=== PATIENT | female | born 1945 | race Caucasian/White ===

== ENCOUNTER 2017-11-06 00:27 | Emergency (ER) | payer MEDICARE, MEDICAID ==
[~2017-11-06] VITALS: Ht 162.6 cm; Wt 59.0 kg
--- NOTE | 2017-11-06 00:37 | NUR ---
Dr. Gunderson at bedside for MSE.
[2017-11-06] MEDS ORDERED: MUPIROCIN 2% OINT 22 GM TUBE TP ONE (00:45)
--- NOTE | 2017-11-06 00:51 | NUR ---
CALLED [employer]. SPOKE WIT BREAD PACKER 439. BREAD PACKER WILL SEND UNIT RAYMUNDO
[2017-11-06] MEDS ORDERED: MUPIROCIN 2% OINT 22 GM TUBE ONE (00:57)
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
--- NOTE | 2017-11-06 01:40 | NUR ---
[employer] at [facility] to interview patient
[2017-11-06] MEDS ORDERED: CEPHALEXIN MONOHYDRATE 500 MG CAPSULE PO ONE (02:00)
[2017-11-06] MEDS ORDERED: CEPHALEXIN MONOHYDRATE 500 MG CAPSULE ONE (02:03)
--- NOTE | 2017-11-06 02:17 | NUR ---
Patient discharged to home in stable conditon. Written and verbal after care instructions given. Patient verbalizes understanding of instructions. Pt ambulated out of ER with steady gait, VSS, no acute signs of distress, all belongings taken.
[2017-11-06 02:19] VITALS: BP 158/72
== END 2017-11-06 02:20 | disposition home or self-care (01) ==
LOC: ER 00:30
DX: S01.431A Puncture wound without foreign body of right cheek and temporomandibular area, initial encounter (principal); Z59.0 Homelessness; W34.09XA Accidental discharge from other specified firearms, initial encounter; Y93.89 Activity, other specified; Y92.89 Other specified places as the place of occurrence of the external cause; Y99.8 Other external cause status
CPT/HCPCS: 99283; A4217; A4663

== ENCOUNTER 2017-11-30 17:30 | Emergency (ER) | payer MEDICARE, MEDICAID ==
[~2017-11-30] VITALS: Ht 162.6 cm; Wt 61.2 kg
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
--- NOTE | 2017-11-30 18:29 | NUR ---
Patient given written and verbal discharge instructions. Patient verbalizes understanding of instructions. Patient is ambulatory with steady gait. Refuses to get info on shelters because pt says "its harder to live in shelters than to live on streets".
== END 2017-11-30 18:33 | disposition home or self-care (01) ==
LOC: ER 17:30
DX: S40.021A Contusion of right upper arm, initial encounter (principal); S70.11XA Contusion of right thigh, initial encounter; Z59.0 Homelessness; W34.00XA Accidental discharge from unspecified firearms or gun, initial encounter; Y93.89 Activity, other specified; Y92.89 Other specified places as the place of occurrence of the external cause; Y99.8 Other external cause status
CPT/HCPCS: A4663

== ENCOUNTER 2018-06-23 23:17 | Emergency (ER) | payer MEDICARE, MEDICAID ==
[~2018-06-23] VITALS: Ht 162.6 cm; Wt 63.5 kg
--- NOTE | 2018-06-23 23:36 | NUR ---
Patient is AAOx4. Speaking in complete sentences. Speech is clear. Patient comes in with c/o LLE swelling/pain x3 days. Bed in lowest position. Siderails up x2. CAll light is within reach. Fall precautions per malik.
[2018-06-23] MEDS ORDERED: MUPIROCIN 2% OINT 22 GM TUBE ONE (23:54)
[2018-06-23] MEDS ORDERED: SULFAMETH/TRIMETH 800/160 MG TABLET ONE (23:54)
[2018-06-24] MEDS ORDERED: SULFAMETH/TRIMETH 800/160 MG TABLET PO ONE
[2018-06-24] MEDS ORDERED: MUPIROCIN 2% OINT 22 GM TUBE TP ONE
--- NOTE | 2018-06-24 00:09 | NUR ---
Patient does not wish to proceed with medical care recommended by Dr. Hernandez. Patient given information related to possible complications, up to and including , which could occur as a result of leaving the hospital at this time. Patient verbalizes understanding of risks involved due to leaving against medical advice. Patient has signed AMA form. All belongings with patient.
== END 2018-06-24 00:10 | disposition left against medical advice (07) ==
LOC: ER 23:19
DX: L03.116 Cellulitis of left lower limb (principal); Z59.0 Homelessness
CPT/HCPCS: A4663

== ENCOUNTER 2018-06-24 21:17 | Emergency (ER) | payer MEDICARE, MEDICAID ==
[~2018-06-24] VITALS: Ht 160 cm; Wt 59.4 kg
--- NOTE | 2018-06-24 21:20 | NUR ---
Dr. Frank TSAI MD at bedside to evaluate pt.
[2018-06-24 21:42] LABS: BASOPHILS # (AUTO) 0.1 K/uL (0.0-8.0); BASOPHILS % (AUTO) 1.2 % (0.0-2.0); EOSINOPHILS # (AUTO) 0.3 K/uL (0.0-0.7); EOSINOPHILS % (AUTO) 2.8 % (0.0-7.0); HEMATOCRIT 36.6 % (31.2-41.9); HEMOGLOBIN 12.2 g/dL (10.9-14.3); LYMPHOCYTES # (AUTO) 2.2 K/uL (20.0-40.0); LYMPHOCYTES % (AUTO) 21.1 % (20.5-51.5); MEAN CORPUSCULAR HEMOGLOBIN 28.5 uug (24.7-32.8); MEAN CORPUSCULAR HGB CONC 33 g/dL (32.3-35.6); MEAN CORPUSCULAR VOLUME 85.5 fL (75.5-95.3); MONOCYTES # (AUTO) 0.8 K/uL (2.0-10.0); MONOCYTES % (AUTO) 7.7 % (0.0-11.0); NEUTROPHILS # (AUTO) 6.9 K/uL (1.8-8.9); NEUTROPHILS % (AUTO) 67.2 % (38.5-71.5); PLATELET COUNT (AUTO) 296 K/uL (179-408); RED BLOOD CELL COUNT(AUTO) 4.28 MIL/uL (3.63-4.92); WHITE BLOOD COUNT (AUTO) 10.2 K/uL (3.8-11.8)
[2018-06-24 21:50] LABS: CARBON DIOXIDE 31 mmol/L (21-32); CHLORIDE 104 mmol/L (98-107); GLUCOSE 111 mg/dL (74-106); POTASSIUM 4.2 mmol/L (3.5-5.1); UREA NITROGEN, BLOOD 30 mg/dL (7-18)
[2018-06-24] MEDS ORDERED: SULFAMETH/TRIMETH 800/160 MG TABLET PO ONE (22:00)
[2018-06-24] MEDS ORDERED: SULFAMETH/TRIMETH 800/160 MG TABLET ONE (22:02)
--- NOTE | 2018-06-24 22:10 | NUR ---
Patient discharged to home in stable conditon. Written and verbal after care instructions given. Patient verbalizes understanding of instructions. Patient offered food/drinks and refused. Patient states she has had "10,000 calories today" Patient also refused assistance with jail. Homeless waiver form signed. Patient ambulated out of ER with stable gait. All belongings taken.
[2018-06-24 22:15] VITALS: BP 150/94
== END 2018-06-24 22:15 | disposition home or self-care (01) ==
LOC: ER 21:19
DX: L03.116 Cellulitis of left lower limb (principal); I89.0 Lymphedema, not elsewhere classified; Z59.0 Homelessness
CPT/HCPCS: 36415; 85025; A4663

== ENCOUNTER 2018-06-27 22:00 | Emergency (ER) | payer MEDICARE, MEDICAID ==
[~2018-06-27] VITALS: Ht 157.5 cm; Wt 61.2 kg
--- NOTE | 2018-06-27 22:23 | NUR ---
Patient here for wound check.
--- NOTE | 2018-06-27 22:27 | NUR ---
Patient given written and verbal discharge instructions. Patient verbalizes understanding of instructions. Patient is ambulatory with steady gait. Refuses offer of long term placement. Patient given list of available shelters in surrounding area.
[2018-06-27 22:28] VITALS: BP 145/87
== END 2018-06-27 22:29 | disposition home or self-care (01) ==
LOC: ER 22:02
DX: L03.116 Cellulitis of left lower limb (principal); Z59.0 Homelessness
CPT/HCPCS: A4663

== ENCOUNTER 2018-07-02 16:40 | Emergency (ER) | payer MEDICARE, MEDICAID ==
[~2018-07-02] VITALS: Ht 157.5 cm; Wt 61.2 kg
--- NOTE | 2018-07-02 16:59 | NUR ---
PT A/OX4, PRESENTS TO THE ER C/O GENERALIZED ITCHINESS. PT STATES SHE WAS SEEN IN THIS ER SEVERAL DAYS AGO AND PRESCRIBED BACTRIM FOR CELLULITIS OF THE LLE. PT REPORTS ONSET OF HIVES AND ITCHINESS STARTING LAST NIGHT (07/01/18). UPON INSPECTION, HIVES CHEST, BUE, AND BACK. PT DENIES PAIN, C/P, SOB, N/V/D, DIZZINESS, HEADACHE.
--- NOTE | 2018-07-02 17:07 | NUR ---
QUIN ELLER AT BEDSIDE FOR MSE.
[2018-07-02] MEDS ORDERED: CLINDAMYCIN HCL 300 MG CAPSULE ONE (17:14)
[2018-07-02] MEDS ORDERED: CLINDAMYCIN HCL 150 MG CAPSULE PO ONE (17:15)
--- NOTE | 2018-07-02 17:23 | NUR ---
PT OFFERED FOOD AND WATER, PT REFUSED. PT PROVIDED W/ INFORMATION RE WINTER SHELTERS AND HEALTHCARE CLINICS.
--- NOTE | 2018-07-02 17:23 | NUR ---
Patient given written and verbal discharge instructions. Patient verbalizes understanding of instructions. Patient is ambulatory with steady gait. Refuses offer of penitentiary placement. Patient given list of available shelters in surrounding area. Pt states that she wanted to return to her prior living arrangement and not be provided w/ transportation to a homeless penitentiary. Pt refuses transportation and prefers to arrange for herself.
[2018-07-02] MEDS ORDERED: diphenhydrAMINE 50 MG CAPSULE ONE (17:24)
[2018-07-02 17:25] VITALS: BP 164/70
[2018-07-02] MEDS ORDERED: diphenhydrAMINE 50 MG CAPSULE PO ONE (17:30)
== END 2018-07-02 17:33 | disposition home or self-care (01) ==
LOC: ER 16:42
DX: L03.116 Cellulitis of left lower limb (principal); L50.0 Allergic urticaria; Z88.2 Allergy status to sulfonamides; Z88.8 Allergy status to other drugs, medicaments and biological substances; Z59.0 Homelessness
CPT/HCPCS: 99283; Q0163; A4663

== ENCOUNTER 2018-07-07 14:41 | Inpatient (IN) | payer MEDICARE, MEDICAID ==
[~2018-07-07] VITALS: Ht 162.6 cm; Wt 65.8 kg
[2018-07-07] VITALS (11 sets, daily range): BP systolic 88–146; BP diastolic 39–66
[2018-07-07] MEDS ORDERED: SODIUM BICARBONATE 8.4% 50 MEQ/50 ML DISP.SYRIN IV ONE (14:42)
[2018-07-07] MEDS ORDERED: ETOMIDATE 20 MG/10 ML VIAL IV ONE ×2 (14:42→16:00)
[2018-07-07] MEDS ORDERED: EPINEPHRINE 1:10,000 1 MG/10 ML DISP.SYRIN IV ONE (14:42)
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
[2018-07-07] MEDS ORDERED: VANCOMYCIN IV 1,000 MG in IV DEXTROSE 5% 250 ML IV ONE (15:00)
[2018-07-07] MEDS ORDERED: VANCOMYCIN IV 200 ML ONE (15:07)
[2018-07-07] MEDS ORDERED: methylPREDNISolone SOD SUCC 125 MG/2 ML VIAL ONE (15:07)
--- NOTE | 2018-07-07 15:17 | NUR ---
HYDRO STATION SUPERVISOR AT BEDSIDE.
--- NOTE | 2018-07-07 15:18 | NUR ---
US TECH AT BEDSIDE.
[2018-07-07 15:21] LABS: BASOPHILS # (AUTO) 0.1 K/uL (0.0-8.0); BASOPHILS % (AUTO) 0.7 % (0.0-2.0); EOSINOPHILS # (AUTO) 0.5 K/uL (0.0-0.7); EOSINOPHILS % (AUTO) 5.4 % (0.0-7.0); HEMOGLOBIN 13.1 g/dL (10.9-14.3); LYMPHOCYTES % (AUTO) 9.7 % (20.5-51.5); MEAN CORPUSCULAR HGB CONC 33 g/dL (32.3-35.6); MEAN CORPUSCULAR VOLUME 85.3 fL (75.5-95.3); MONOCYTES # (AUTO) 0.4 K/uL (2.0-10.0); MONOCYTES % (AUTO) 4.2 % (0.0-11.0); NEUTROPHILS # (AUTO) 8.1 K/uL (1.8-8.9); PLATELET COUNT (AUTO) 373 K/uL (179-408); RED BLOOD CELL COUNT(AUTO) 4.69 MIL/uL (3.63-4.92); WHITE BLOOD COUNT (AUTO) 10.1 K/uL (3.8-11.8)
[2018-07-07 15:31] LABS: CARBON DIOXIDE 28 mmol/L (21-32); CHLORIDE 100 mmol/L (98-107); CREATININE 1.1 mg/dL (0.6-1.3); GLUCOSE 148 mg/dL (74-106); POTASSIUM 3.8 mmol/L (3.5-5.1); UREA NITROGEN, BLOOD 22 mg/dL (7-18)
[2018-07-07 15:37] LABS: ALANINE AMINOTRANSFERASE 22 U/L (14-59); ALKALINE PHOSPHATASE 140 U/L (50-136); ASPARTATE AMINOTRANSFERASE 20 U/L (15-37); BILIRUBIN,DIRECT 0.1 mg/dL (0.0-0.2); BILIRUBIN,TOTAL 0.3 mg/dL (0.2-1.0); TOTAL PROTEIN, SERUM 7.6 g/dL (6.4-8.2)
[2018-07-07] MEDS: methylPREDNISolone SOD SUCC 125 MG/2 ML VIAL IV ONE ×2 (15:39→15:40)
--- NOTE | 2018-07-07 15:39 | NUR ---
SLOW IVP SOLUMEDROL ADMIN VIA 20G RAC. PT DID NOT HAVE ANY ADVERSE REACTIONS. PT A/OX4, RESPONSIVE. NO DISTRESS NOTED.
--- NOTE | 2018-07-07 15:40 | NUR ---
POST CHARTING IV INFUSION OF VANCOMYCIN VIA 20G IN RAC, RETURNED TO PT'S ROOM AND FOUND PT UNRESPONSIVE W/ NO RESPIRATIONS. PALPATED FOR CAROTID PULSE, NO PULSE PALPATED. CODE BLUE ACTIVATED, CPR INITIATED.
[2018-07-07] MEDS ORDERED: diphenhydrAMINE 50 MG CAPSULE PO ONE (15:45)
--- NOTE | 2018-07-07 15:45 | NUR ---
PLEASE REFER TO CODE SHEET.
[2018-07-07] MEDS ORDERED: EPINEPHRINE 1 MG/1 ML AMP ONE (15:46)
[2018-07-07] MEDS ORDERED: PROPOFOL 100 ML ONE (15:54)
--- NOTE | 2018-07-07 15:57 | NUR ---
CODE BLUE CLEAR BY QUIN ELLER.
[2018-07-07] MEDS ORDERED: FAMOTIDINE. 20 MG/2 ML VIAL IV ONE (16:00)
--- NOTE | 2018-07-07 16:00 | NUR ---
Pt placed on vent post arrest.. Orally intubated, ETT 7.5, approx 23 at lip, in place and secure with [place] Fast.. Continuous mechanical ventilation with vent: Pagan, settings: A/C 16, Vt 550, PEEP +5, FiO2 100%, tolerating well at this time, will continue to monitor.. Sputum sample obtained.. vent alarms on / audible and functioning normally at this time..
[2018-07-07] MEDS ORDERED: NOREPINEPHRINE BITARTRATE 4 MG/4 ML VIAL IV ONE (16:46)
[2018-07-07 16:50] LABS: ETHANOL < 3 MG/DL (0-0)
[2018-07-07 17:00] LABS: ABG BASE EXCESS -7.1 mmol/L; ABG HCO3 18.5 mmol/L; ABG PCO2 37.7 mmHg (35.0-45.0); ABG PH 7.308 (7.350-7.450); ABG PO2 454.5 mmHg (75.0-100.0); ABG SITE LEFT BRACHIAL; ABG TOTAL HEMOGLOBIN 15.2 G/dL (12.0-16.0); COHb 1.2 % (0.5-1.5); MetHb 0.3 % (0.0-1.5); O2Hb 98.4 % (94.0-97.0); VENT MODE VENT - A/C; VT, ABG 550 mL
[2018-07-07] MEDS: PROPOFOL 100 ML IV PRN ×2 (17:00→17:51)
--- NOTE | 2018-07-07 17:07 | NUR ---
FiO2 lowered to 50% post ABG, and LOLIS Machado aware..
--- NOTE | 2018-07-07 17:28 | NUR ---
ER SPOKE W/ PLAN COORDINATOR AT [facility], DR. DELGADO, REPORTS PT DOES NOT MEET CRITERIA FOR EMERGENT SEWER PIPE SORTER PROCEDURE.
[2018-07-07] MEDS ORDERED: IV NORMAL SALINE 500 ML BAG IV ONE (17:30)
--- NOTE | 2018-07-07 17:30 | NUR ---
PT TAKEN TO RADIOLOGY FOR CT SCAN, TELE MONITORING CONTINUED. PT ACCOMPANIED BY RT LAURA, FRANCHESCA VARGAS, AND MYSELF. VSS.
--- NOTE | 2018-07-07 17:40 | NUR ---
PT TRANSPORTED TO CT SCAN AND BACK TO ER WITHOUT INCIDENT NOTED. VENT WORKING WELL AND PLUGGED TO RED OUTLET, O2 CONNECTED.
--- NOTE | 2018-07-07 17:40 | NUR ---
PT BACK IN ER FROM RADIOLOGY.
[2018-07-07 17:48] LABS: *BILIRUBIN,URIN NEGATIVE (NEGATIVE); *BLOOD, URINE 2+ (NEGATIVE); *CLARITY,URINE CLOUDY (CLEAR); *COLOR,URINE YELLOW (YELLOW); *KETONES,URINE NEGATIVE (NEGATIVE); *UROBILINOGEN,URINE 0.2 E.U./dl (NORMAL); LEUKOCYTE ESTERASE ,URINE NEGATIVE (NEGATIVE); NITRITE, URINE NEGATIVE (NEGATIVE); UGLUCOSE TRACE (NEGATIVE)
[2018-07-07 17:54] LABS: BACTERIA,URINE NONE SEEN /HPF (NONE SEEN); SQUAMOUS EPITHELIAL CELL,UR FEW /HPF (NONE SEEN); WBC,URINE 0-3 /HPF (0-3)
[2018-07-07] MEDS ORDERED: HEPARIN/D5W DRIP 500 ML IV ONE (18:15)
[2018-07-07] MEDS ORDERED: HEPARIN SODIUM,PORCINE 5,000 UNITS/ML VIAL IV ONE (18:15)
[2018-07-07] MEDS ORDERED: LORAZEPAM 2 MG/1 ML VIAL ONE (18:24)
[2018-07-07] MEDS ORDERED: LORAZEPAM 2 MG/1 ML VIAL IV ONE (18:30)
[2018-07-07] MEDS ORDERED: HEPARIN/D5W DRIP 500 ML ONE (18:38)
[2018-07-07] MEDS ORDERED: HEPARIN SODIUM,PORCINE 5,000 UNITS/ML VIAL ONE (18:38)
--- NOTE | 2018-07-07 19:17 | NUR ---
SHIFT REPORT GIVEN TO LOLIS STOVER. VSS. 118/81, HR 103, RR 16 ON VENT - FIO2 50%, PEEP 5, TV 550 - SPO2 100%
--- NOTE | 2018-07-07 19:43 | NUR ---
ADMITTING REPORT GIVEN TO LOLIS HIGGINBOTHAM.
--- NOTE | 2018-07-07 19:43 | NUR ---
Pt. admitted to CCU2, under care of Dr. BRYANT. Belongs List completed
[2018-07-07] MEDS ORDERED: EPINEPHRINE 1 MG/1 ML AMP SQ ONE (19:45)
--- NOTE | 2018-07-07 19:58 | NUR ---
Clinical pharmacy note-Vancomycin dosing per pharmacy Subjective: To start Vancomycin dosing on this patient for LLE cellulitis(failed outpatient) Objective: BUN 22 Scr 1.1 WBC 10.1 Temp 98.2 Ht 162, 56 cm Wt 79.832kg Assessment/Plan: Vancomycin 1 gram x1 was given in ER today at 1540. Will continue Vancomycin 1 gram IV every 21hrs(second dose tomorrow at 12) and draw trough by 4th dose(not ordered yet) for expected trough around 15. Will monitor daily.
--- NOTE | 2018-07-07 20:07 | NUR ---
Received pt CCU bed 2, under the care of MD HAYLEY. Dx: S/P CARDIOPULMONARY ARREST/ RESPIRATORY FAILURE. Pt orally intubated with vent settings: AC 16, TV 550, PEEP 5, Fio2 50%. On continuous Diprivan and Heparin drips. See IV spreadsheet for rates. Pt on bilateral restraints for safety. Assessment completed. See initial admission data.
--- NOTE | 2018-07-07 20:13 | NUR ---
Pt transported to CCU bed 2 on vent with settings: A/C 16, Vt 550, PEEP +5, FiO2 50% Orally intubated, ETT 7.5, approx 23 at lip, in place and secure with [place] Fast. tolerating well at this time, will continue to monitor.. vent alarms on / audible and functioning normally at this time vent plugged into red outlet. will cont to monitor pt.
[2018-07-07] MEDS ORDERED: ONDANSETRON 4 MG/2 ML VIAL IV PRN (20:30)
[2018-07-07] MEDS ORDERED: Z GUARD REMEDY PASTE 57 GM TUBE TOP PRN (20:30)
[2018-07-07] MEDS ORDERED: PROPOFOL 100 ML IV PRN (20:45)
[2018-07-07] MEDS ORDERED: NOREPINEPHRINE BITARTRATE 8 MG in IV DEXTROSE 5% 500 ML IV PRN ×4 (20:45)
--- NOTE | 2018-07-07 20:45 | NUR ---
Notified MD HAYLEY of pt admission and need for admitting orders. Inform MD of pt vital signs and current condition. Stated MD will provide orders. Will continue to monitor pt.
--- NOTE | 2018-07-07 20:50 | NUR ---
Heparin drip dose discussed with pharmacist. Dose adjusted to current pt's weight. WT: 69.5 KG.
[2018-07-07] MEDS: HEPARIN/D5W DRIP 500 ML IV PRN (21:27)
[2018-07-07] MEDS: Z GUARD REMEDY PASTE 57 GM TUBE TOP SCH (21:27)
--- NOTE | 2018-07-07 21:35 | NUR ---
JAMESON notified of critical TROPONIN level. Pt is already on Heparin drip as per MD. No new orders.
--- NOTE | 2018-07-07 22:00 | NUR ---
Attempted to insert another IV but unsuccessful. Correctional Medicine Physician called for PICC line insertion.
--- NOTE | 2018-07-07 22:30 | NUR ---
DR HARDY called, spoke to LOLIS GANT. Orders received.
--- NOTE | 2018-07-07 23:10 | NUR ---
Pt seen and examined by DR HARDY. Orders given. PICC line consent form signed by MD. Repeat EKG seen by MD. Will continue to monitor pt.
[2018-07-08] VITALS (30 sets, daily range): BP systolic 95–138; BP diastolic 25–61
[2018-07-08] MEDS: METOPROLOL TARTRATE 25 MG TABLET GT SCH ×3 (00:08→21:02)
[2018-07-08] MEDS: PANTOPRAZOLE SODIUM 40 MG VIAL IV SCH ×2 (00:08→08:34)
[2018-07-08] MEDS: PROPOFOL 100 ML IV PRN ×5 (02:04→23:18)
[2018-07-08 05:02] LABS: BASOPHILS % (AUTO) 0.1 % (0.0-2.0); EOSINOPHILS # (AUTO) 0.1 K/uL (0.0-0.7); EOSINOPHILS % (AUTO) 0.2 % (0.0-7.0); HEMOGLOBIN 12.1 g/dL (10.9-14.3); LYMPHOCYTES # (AUTO) 1.2 K/uL (20.0-40.0); LYMPHOCYTES % (AUTO) 4.6 % (20.5-51.5); MEAN CORPUSCULAR HEMOGLOBIN 28.3 uug (24.7-32.8); MEAN CORPUSCULAR HGB CONC 34 g/dL (32.3-35.6); MEAN CORPUSCULAR VOLUME 84.5 fL (75.5-95.3); MONOCYTES # (AUTO) 0.6 K/uL (2.0-10.0); MONOCYTES % (AUTO) 2.4 % (0.0-11.0); NEUTROPHILS % (AUTO) 92.7 % (38.5-71.5); PLATELET COUNT (AUTO) 270 K/uL (179-408); RED BLOOD CELL COUNT(AUTO) 4.27 MIL/uL (3.63-4.92); WHITE BLOOD COUNT (AUTO) 25.9 K/uL (3.8-11.8)
[2018-07-08 05:24] LABS: CARBON DIOXIDE 23 mmol/L (21-32); CHLORIDE 105 mmol/L (98-107); CREATININE 1.8 mg/dL (0.6-1.3); GLUCOSE 184 mg/dL (74-106); MAGNESIUM 1.6 mg/dL (1.8-2.4); PHOSPHOROUS 4.9 mg/dL (2.5-4.9); POTASSIUM 4.3 mmol/L (3.5-5.1); TRIGLYCERIDES 112 MG/DL (30-150); UREA NITROGEN, BLOOD 34 mg/dL (7-18)
[2018-07-08 05:25] LABS: CHOLESTEROL 129 mg/dL (<200); HDL CHOLESTEROL 44 mg/dL (40-60)
[2018-07-08 05:47] LABS: BAND % (MANUAL) 5 % (0-10); LYMPHOCYTES % (MANUAL) 6 % (20-40); MONOCYTES % (MANUAL) 2 % (2-10); NEUTROPHILS % (MANUAL) 86 % (42-75)
--- NOTE | 2018-07-08 07:25 | NUR ---
Pt stable on current vent settings. VSS. Remains on Diprivan and Heparin drips. Endorsed plan of care to day shift nurse.
--- NOTE | 2018-07-08 07:26 | NUR ---
All notes and documentation by Romina Heath RN (on orientation) were under my supervision.
--- NOTE | 2018-07-08 07:33 | NUR ---
PT RECEIVED ON FULL VENTILATORY SUPPORT TOLERATING CURRENT SETTINGS FINE WITH NO DISTRESS. PT APPEARS COMFORTABLE. BREATH SOUNDS WITHOUT WHEEZING. PT SUCTIONED AND HAD SCANT AMOUNT OF THIN WHITE SECRETIONS. HEAD OF THE BED ELEVATED GREATER THAN 35 DEGREE ANGLE. VENT ALARMS SET AND AUDIBLE. ORAL CARE DONE. ETT CHANGED SIDES FROM PT LEFT SIDE OF LIP TO THE RIGHT. ETT SECURED AND AIRWAY PATENT. WILL CONTINUE TO MONITOR.
[2018-07-08 07:56] LABS: ABG BASE EXCESS -2.5 mmol/L; ABG HCO3 19.7 mmol/L; ABG PCO2 26.7 mmHg (35.0-45.0); ABG PH 7.485 (7.350-7.450); ABG SITE RIGHT RADIAL; ABG TOTAL HEMOGLOBIN 12.2 G/dL (12.0-16.0); COHb 0.5 % (0.5-1.5); MetHb 0.3 % (0.0-1.5); VENT MODE VENT - A/C; VT, ABG 550 mL
[2018-07-08] MEDS ORDERED: MAGNESIUM SULFATE/D5W 100 ML IV SCH (08:30)
--- NOTE | 2018-07-08 08:32 | NUR ---
Dr. Cueva here to see pt. Full report given. New orders received.
[2018-07-08] MEDS: LORATADINE 10 MG TABLET PO SCH (08:34)
[2018-07-08] MEDS: Z GUARD REMEDY PASTE 57 GM TUBE TOP SCH ×2 (08:35→21:02)
[2018-07-08] MEDS: diphenhydrAMINE 50 MG/1 ML VIAL IV PRN (08:45)
[2018-07-08] MEDS: POTASSIUM CHLORIDE 10 MEQ in IV D5 1/2 NS 1000 ML 1,000 ML IV PRN (09:04)
[2018-07-08] MEDS: ACETAMINOPHEN 325 MG TABLET PO PRN (09:08)
--- NOTE | 2018-07-08 09:08 | NUR ---
Pt noted to have low grade temp of 100.0 orally. Tylenol PRN given and cooling measures applied.
--- NOTE | 2018-07-08 09:37 | NUR ---
Dr. Hong (Pulmonary) here to see pt. Full report given. New orders received.
[2018-07-08] MEDS ORDERED: VANCOMYCIN IV 1 G in PREMIXED 0 EACH IV ONE (10:15)
--- NOTE | 2018-07-08 11:05 | NUR ---
VENT SETTING CHANGES MADE PER DR GOLDSMITH. RESPIRATORY RATE CHANGED TO 12 BPM.
[2018-07-08] MEDS ORDERED: VANCOMYCIN IV 1 G in PREMIXED 0 EACH IV SCH (12:00)
--- NOTE | 2018-07-08 12:16 | NUR ---
Clinical pharmacy note-Vancomycin dosing per pharmacy Subjective: To continue Vancomycin dosing on this patient for LLE cellulitis(failed outpatient) Objective: BUN 34 Scr 1.8 (yesterdayt 1.1) WBC 25.9 Temp 99 Ht 162, 56 cm Wt 79.832kg random with am labs today 0.8 Assessment/Plan: As renal function has decreased drastically, stopped scehduled regimen and will dose per level for now. 1gm vanco x 1 given today at 1015. Next random level due tomorrow with am labs. Will check and re-dose as needed. Will follow
[2018-07-08] MEDS: GLUCERNA 1.2 1000ML LIQUID GT PRN (14:49)
--- NOTE | 2018-07-08 15:18 | NUR ---
Dr. Britton here to see pt. Full report given. No new orders received.
--- NOTE | 2018-07-08 19:30 | NUR ---
rounds made patient in bed orally intubated on ac12/550/30% peep 5,tolerating vent setting, rr 13 saturation 99 to 100%, + cough and + gag suction via mouth and via ett .sedated on propofol .patient withdraws to pain but doesn't follow commands .TF in progress on Glucerna 1.2 goal of 50 ml now at 20 ml . hob up aspiration precaution observed ,f/c to bsd .continue to monitor levels of comfort and v/s .
--- NOTE | 2018-07-08 19:50 | NUR ---
Pt received sedated, orally intubated on continuous mechanical ventilation via 7.5 ETT secured at 23cm lip line. Pt is on Pagan vent with ordered settings of A/C-12, VT-550, PEEP+5, FIO2-30% Pt tolerating vent settings well. No signs or symptoms of respiratory distress noted. SpO2-99% Sxn'd scant amounts of thick white secretions. ETT secured with AnchorFast device. Good skin integrity noted under area of application. No skin tears or breakdown noted. ETT moved periodically to alternating sides of mouth. HME changed. Oral care done. PPE used. Vent alarm parameters checked, on and audible. Vent plugged into red emergency outlet. Bag/valve/mask at bedside. Will continue to monitor.
--- NOTE | 2018-07-08 20:30 | NUR ---
sedation vacation done when off propofol patient moved upper and lower extremities reach for the ETT doesn't not follow commands .
--- NOTE | 2018-07-08 21:04 | NUR ---
turned and reposition patient,skin care done ,z guard applied to sacral and bilateral groin area elevate upper and lower extremities with pillows.back off loaded with pillow .hob up . oral care done suction via ett and via mouth .
--- NOTE | 2018-07-08 21:30 | NUR ---
turned and reposition patient ,skin care done , z guard applied to sacral area and bilateral groin . oral care done and suction via mouth and via ett .
--- NOTE | 2018-07-08 22:30 | NUR ---
placed patient on air loss mattress , changed soiled linens and gown .
[2018-07-09] VITALS (23 sets, daily range): BP systolic 104–141; BP diastolic 42–86
--- NOTE | 2018-07-09 02:00 | NUR ---
patient had bm moderate in am changed soiled linens and gown skin care done .
[2018-07-09] MEDS: PROPOFOL 100 ML IV PRN ×3 (03:59→20:35)
--- NOTE | 2018-07-09 04:00 | NUR ---
am care done patient had a large bm soft to loose bm yellowish to greenish foul smelling ,stool for c diff .changed soiled linens and gown ,z guard applied sacral area bilateral groin ,f/c done and oral care done .patient withdraws to pain .doesn't follow commands . .on propofol for sedation and restraint on follow restrains protocol .turned and reposition offloaded heels and back area with pillows ,upper arm elevated with pillows .
[2018-07-09] MEDS: HEPARIN/D5W DRIP 500 ML IV PRN (04:10)
[2018-07-09] MEDS: POTASSIUM CHLORIDE 10 MEQ in IV D5 1/2 NS 1000 ML 1,000 ML IV PRN ×2 (04:14→23:02)
[2018-07-09 04:58] LABS: BASOPHILS % (AUTO) 0.2 % (0.0-2.0); EOSINOPHILS # (AUTO) 1.1 K/uL (0.0-0.7); EOSINOPHILS % (AUTO) 6.1 % (0.0-7.0); HEMATOCRIT 33.7 % (31.2-41.9); HEMOGLOBIN 11.2 g/dL (10.9-14.3); LYMPHOCYTES # (AUTO) 1.3 K/uL (20.0-40.0); LYMPHOCYTES % (AUTO) 7.2 % (20.5-51.5); MEAN CORPUSCULAR HEMOGLOBIN 28.1 uug (24.7-32.8); MEAN CORPUSCULAR HGB CONC 33 g/dL (32.3-35.6); MONOCYTES # (AUTO) 0.4 K/uL (2.0-10.0); MONOCYTES % (AUTO) 2.4 % (0.0-11.0); NEUTROPHILS # (AUTO) 14.6 K/uL (1.8-8.9); NEUTROPHILS % (AUTO) 84.1 % (38.5-71.5); PLATELET COUNT (AUTO) 224 K/uL (179-408); RED BLOOD CELL COUNT(AUTO) 3.96 MIL/uL (3.63-4.92); WHITE BLOOD COUNT (AUTO) 17.3 K/uL (3.8-11.8)
[2018-07-09 05:26] LABS: ALANINE AMINOTRANSFERASE 26 U/L (14-59); ALKALINE PHOSPHATASE 87 U/L (50-136); ASPARTATE AMINOTRANSFERASE 38 U/L (15-37); BILIRUBIN,TOTAL 0.2 mg/dL (0.2-1.0); CARBON DIOXIDE 24 mmol/L (21-32); CHLORIDE 100 mmol/L (98-107); CREATININE 2.2 mg/dL (0.6-1.3); GLUCOSE 141 mg/dL (74-106); MAGNESIUM 2.3 mg/dL (1.8-2.4); PHOSPHOROUS 5.3 mg/dL (2.5-4.9); POTASSIUM 4.1 mmol/L (3.5-5.1); TOTAL PROTEIN, SERUM 5.9 g/dL (6.4-8.2); UREA NITROGEN, BLOOD 39 mg/dL (7-18)
[2018-07-09] MEDS: PANTOPRAZOLE SODIUM 40 MG VIAL IV SCH (06:43)
--- NOTE | 2018-07-09 07:00 | NUR ---
appt 38.9 heparin protocol followed co send with another RN . APPT due at 1300.no s/s of bleedings.
--- NOTE | 2018-07-09 07:15 | NUR ---
PT REC'D ORALLY INTUBATED WITH 7.5 ETT SECURED WITH TUBE WALLACE AT APPROX 23 LIP-LINE. VENT SETTINGS AC12 550 PEEP+5 30%FiO2 TOLERATING WELL WITH WEANING ORDERED THIS AM OF WHEN SEDATION OFF CPAP/PS X 1HR WITH ABG'S TO BE DRAWN. VENT ALARMS AUDIBLE CHECKED AND RESET BVM AT BEDSIDE.
[2018-07-09] MEDS: LORATADINE 10 MG TABLET PO SCH (07:50)
[2018-07-09] MEDS: Z GUARD REMEDY PASTE 57 GM TUBE TOP SCH ×2 (07:51→20:35)
[2018-07-09] MEDS: METOPROLOL TARTRATE 25 MG TABLET GT SCH ×2 (07:51→20:34)
--- NOTE | 2018-07-09 08:00 | NUR ---
At 0730, IV propofol turned off per weaning protocol. At 0800, pt placed on CPAP weaning trial with settings as follows: PSV-6, PEEP-5, and 30% FiO2. ABG to be rechecked in one hour as ordered.
--- NOTE | 2018-07-09 08:15 | NUR ---
VENT SETTING CHANGES MADE, PT APPEARS COMFORTABLE ON CPAP/PS, ABG'S TO BE DRAWN IN 1HR.
[2018-07-09] MEDS ORDERED: VANCOMYCIN IV 1 G in PREMIXED 0 EACH IV ONE (09:00)
[2018-07-09 09:38] LABS: ABG BASE EXCESS -3.9 mmol/L; ABG HCO3 21.1 mmol/L; ABG PCO2 38.3 mmHg (35.0-45.0); ABG PH 7.359 (7.350-7.450); ABG PO2 102.3 mmHg (75.0-100.0); ABG SITE LEFT RADIAL; COHb 0.5 % (0.5-1.5); CPAP,BG 5 cmH20; MetHb 0.3 % (0.0-1.5); O2Hb 96.5 % (94.0-97.0); VENT MODE VENT - CPAP; VT, ABG 727 mL
--- NOTE | 2018-07-09 09:41 | NUR ---
Dr. Hong here to see pt. Full report given. New orders received.
--- NOTE | 2018-07-09 09:53 | NUR ---
Per Dr. Hong, continue CPAP for now. If pt more awake and alert during CPAP, okay for extubation.
[2018-07-09] MEDS: GLUCERNA 1.2 1000ML LIQUID GT PRN (09:59)
--- NOTE | 2018-07-09 11:15 | NUR ---
Pt not awake, alert for CPAP weaning trial at this time. Pt noted to be poorly responsive. Will retry weaning trials tomorrow in the am. Pt placed back on prior ventilation settings as follows: AC-12, TV-550ml, 30% FiO2, and PEEP-5.
--- NOTE | 2018-07-09 11:16 | NUR ---
PT WEANING ON CPAP/PS, PT DOING WELL WEANING PLACING BACK ON PREVIOUS SETTINGS AT THIS TIME. RESUMING WEANING IN AM CPAP/PS.
--- NOTE | 2018-07-09 12:30 | NUR ---
translation director here to see pt. New orders received.
--- NOTE | 2018-07-09 12:31 | NUR ---
WOUND CARE CONSULT: PT PRESENTS WITH GENERALIZED BLOTCHY RED SKIN RESOLVING REDNESS AND EDEMA TO LEFT LOWER LEG WITH SOME OPEN BLISTERS AND PEELING SKIN, ALSO SACRAL STAGE 2 ULCER, PRESENT ON ADMISSION. DEFER TO MD FOR BLOTCHY RED SKIN CONDITION. RECOMMENDATIONS MADE FOR WOUND CARE AND SKIN PROTECTION. DISCUSSED WITH NURSING STAFF. WILL SEE PRN. PT ON FIRST STEP [facility] LOW AIRLOSS MATTRESS. CURRENT NICOLE SCORE IS 14. PT CURRENTLY INTUBATED. MD IN AGREEMENT WITH PLAN OF CARE. Addendum: 07/09/18 at 1234 by GERI MARTINEZ RN Amended: Links added.
[2018-07-09] MEDS ORDERED: LEVOFLOXACIN 500 MG/D5W 500 MG in PREMIXED 1 EACH IV ONE (14:00)
--- NOTE | 2018-07-09 14:46 | NUR ---
Dr. Britton here to see pt. Full report given. No new orders received.
--- NOTE | 2018-07-09 16:41 | NUR ---
Clinical pharmacy note-Vancomycin dosing per pharmacy Subjective: To continue Vancomycin dosing on this patient for LLE cellulitis(failed outpatient) Objective: BUN 39 Scr 2.2 (yesterdayt 1.8) WBC 17.3 Temp 99.6 Ht 162, 56 cm Wt 79.832kg random with am labs today 16.2 Assessment/Plan: As renal function continues to decline, will dose per level for now. 1gm vanco x 1 given today at 0900 per random level. Next random level due tomorrow with am labs. Will check and re-dose as needed. Will follow
--- NOTE | 2018-07-09 19:30 | NUR ---
patient orally intubated on ac fio3 30% peep 5 .tolerating vent setting rr 12 saturation 100% .oral care done and suction via mouth and via nose .on propofol for sedation .patient withdraws to light pain , at times moved extremities.,doesn't follow commands .restraint used and follow protocol .tf in progress on Glucerna at 50 ml /hr at goal ,hob up .aspiration precaution observed .f/c to bsd continue to monitor i and os . left lower leg with dressing c/d/i.elevated with pillow .continue to monitor v/s ,and levels of comfort .
--- NOTE | 2018-07-09 20:09 | NUR ---
lab /manager of care at bedside to draw aptt patient on heparin drip protocol . .
--- NOTE | 2018-07-09 20:10 | NUR ---
PT RECEIVED ORALLY INTUBATED WITH A 7.5 ETT APPROXIMATELY 23CM AT THE LIP. PT IS BEING MECHANICALLY VENTILATED VIA MARINELLI VENT WITH VENT SETTINGS OF AC 12, VT 550, PEEP +5, FIO2 30%. PT APPEARS TO BE TOLERATING AT THIS TIME. NO S/S OF RESPIRATORY DISTRESS NOTED. HME CHANGED. ORAL CARE DONE. SUCTIONED SMALL AMOUNT OF YELLOW/WHITE SECRETIONS. VENT ALARMS ARE SET, ON AND FUNCTIONING PROPERLY. VENT IS PLUGGED INTO RED EMERGENCY OUTLET. AMBU BAG IS AT BEDSIDE. WILL CONTINUE TO MONITOR THROUGHOUT SHIFT.
--- NOTE | 2018-07-09 20:30 | NUR ---
appt 53.2 no changed with heparin drip appt in am with labs .
--- NOTE | 2018-07-09 21:00 | NUR ---
sedation vacation done ,when off propofol patient moved upper and lower extremities ,moved head from side to side but doesn't follow commands placed back on sedation continue to monitor levels of sedation and levels of comfort .
--- NOTE | 2018-07-09 22:30 | NUR ---
patient had bm large in amt soft to loose greenish to yellowish in color . changed soiled linens and gown skin care done ,z guard with hydrogel applied to sacral area and bilateral groin .turned and reposition . hob up and tolerating tube feeding aspiration precaution observed.
[2018-07-10] VITALS (22 sets, daily range): BP systolic 109–150; BP diastolic 20–75
--- NOTE | 2018-07-10 00:30 | NUR ---
turned and reposition patient skin care done ,turned and reposition patient . hob up .
[2018-07-10] MEDS: PROPOFOL 100 ML IV PRN ×2 (03:56→14:30)
--- NOTE | 2018-07-10 04:00 | NUR ---
boom tender came and did am labs .cbc ,bmp,mg and phos .
[2018-07-10] MEDS: HEPARIN/D5W DRIP 500 ML IV PRN (04:05)
--- NOTE | 2018-07-10 04:30 | NUR ---
patient had a bm large in amount soft loose large in amt ,changed soiled linens a and gown .heels offloaded and scds used .
[2018-07-10 04:33] LABS: BASOPHILS # (AUTO) 0.1 K/uL (0.0-8.0); BASOPHILS % (AUTO) 0.6 % (0.0-2.0); EOSINOPHILS # (AUTO) 1.2 K/uL (0.0-0.7); EOSINOPHILS % (AUTO) 8.6 % (0.0-7.0); HEMATOCRIT 29.2 % (31.2-41.9); HEMOGLOBIN 9.8 g/dL (10.9-14.3); LYMPHOCYTES # (AUTO) 1.4 K/uL (20.0-40.0); LYMPHOCYTES % (AUTO) 9.8 % (20.5-51.5); MEAN CORPUSCULAR HEMOGLOBIN 28.3 uug (24.7-32.8); MEAN CORPUSCULAR HGB CONC 34 g/dL (32.3-35.6); MONOCYTES # (AUTO) 0.4 K/uL (2.0-10.0); MONOCYTES % (AUTO) 2.8 % (0.0-11.0); NEUTROPHILS % (AUTO) 78.2 % (38.5-71.5); PLATELET COUNT (AUTO) 203 K/uL (179-408); RED BLOOD CELL COUNT(AUTO) 3.48 MIL/uL (3.63-4.92); WHITE BLOOD COUNT (AUTO) 14.1 K/uL (3.8-11.8)
[2018-07-10 04:44] LABS: CARBON DIOXIDE 24 mmol/L (21-32); CHLORIDE 99 mmol/L (98-107); CREATININE 1.7 mg/dL (0.6-1.3); GLUCOSE 149 mg/dL (74-106); MAGNESIUM 1.9 mg/dL (1.8-2.4); PHOSPHOROUS 4.4 mg/dL (2.5-4.9); POTASSIUM 4.1 mmol/L (3.5-5.1); UREA NITROGEN, BLOOD 33 mg/dL (7-18); VANCOMYCIN,RANDOM 19.9 ug/mL (18.0-26.0)
--- NOTE | 2018-07-10 05:58 | NUR ---
aeronautical engineering technologist at bedside for pcxr.
[2018-07-10] MEDS: PANTOPRAZOLE SODIUM 40 MG VIAL IV SCH (06:37)
--- NOTE | 2018-07-10 07:30 | NUR ---
report received from Philippe DANIELLE, 73 yr old female admited on 07/07/18 for s/p cardiopulmonary arrest while in ED, was being seen for left leg cellulitis. currently is orally intubated to ac 12. fio2 30%, tv 550 and peep 5cm. on propofol drip at 20mcg/kg/min. and on heaprin drip at 1084 units per hour. has 3 lumen PICC line via ciara. IV d5 1/2 NS plus 10meq kcl at 50ml/hr. ngt via right nare intact and clamped at present. chamberlain catheter intact with adequate urine ouptut. left left cellulitis noted. leags are elvated on pillows/ wrist restraints are intact. . ekg is sinus rhthym. is afebrle. bp stable. Addendum: 07/10/18 at 1102 by ALEXX BLEVINS RN Amended: Links added.
--- NOTE | 2018-07-10 09:03 | NUR ---
seen by dr hays, orders received. heparin dc/d. will start on lovenox. Addendum: 07/10/18 at 0908 by ALEXX BLEVINS RN Amended: Links added.
[2018-07-10] MEDS: LORATADINE 10 MG TABLET PO SCH (09:08)
[2018-07-10 09:09] LABS: ABG BASE EXCESS -0.6 mmol/L; ABG HCO3 23.7 mmol/L; ABG PCO2 37.3 mmHg (35.0-45.0); ABG PO2 95.5 mmHg (75.0-100.0); ABG SITE LEFT RADIAL; ABG TOTAL HEMOGLOBIN 10.3 G/dL (12.0-16.0); COHb 0.9 % (0.5-1.5); MetHb 0.1 % (0.0-1.5); O2Hb 96.4 % (94.0-97.0); VENT MODE VENT - CPAP
[2018-07-10] MEDS: METOPROLOL TARTRATE 25 MG TABLET GT SCH ×2 (09:09→20:08)
[2018-07-10] MEDS: diphenhydrAMINE 50 MG/1 ML VIAL IV PRN ×3 (09:09→21:34)
[2018-07-10] MEDS: GLUCERNA 1.2 1000ML LIQUID GT PRN (09:12)
[2018-07-10] MEDS: Z GUARD REMEDY PASTE 57 GM TUBE TOP SCH ×2 (09:34→20:09)
[2018-07-10] MEDS: ENOXAPARIN SODIUM 30 MG/0.3 ML DISP.SYRIN SUBCUT SCH (09:48)
--- NOTE | 2018-07-10 10:35 | NUR ---
seen by dr trujillo.orders received, will keep patient on cpap as tolerated, ac prn for fatigue. needed yo be on sedation plus benadryl rx for skin urticaria, Addendum: 07/10/18 at 1035 by ALEXX BLEVINS RN Amended: Links added.
[2018-07-10] MEDS: LEVOFLOXACIN 250MG /D5W 250 MG in PREMIXED 1 EACH IV SCH (14:20)
--- NOTE | 2018-07-10 14:34 | NUR ---
seen by dr blevins.orders received. IV fluid dcd. Addendum: 07/10/18 at 1435 by ALEXX BLEVINS RN Amended: Links added.
--- NOTE | 2018-07-10 15:23 | NUR ---
medicated for skin itchiness. Addendum: 07/10/18 at 1807 by ALEXX BLEVINS RN Amended: Links added.
[2018-07-10] MEDS: IV NORMAL SALINE 250 ML IV PRN (15:25)
--- NOTE | 2018-07-10 15:29 | NUR ---
Clinical pharmacy note-Vancomycin dosing per pharmacy Subjective: To continue Vancomycin dosing on this patient for LLE cellulitis(failed outpatient) Objective: BUN 33 Scr 1.7 (yesterday 2.2) WBC 14.1 Temp 99.2 Ht 162, 56 cm Wt 79.832kg random with am labs today 19.9 Assessment/Plan: As renal function still unstable (now resolving), will dose per levels. per today's random, will dose 1gm vanco at 2100 tonight. Will check renal function in am and decide when to order next random. Will follow
--- NOTE | 2018-07-10 16:00 | NUR ---
wound care done on left leg cellulitis. repositioned pm care done Addendum: 07/10/18 at 1802 by ALEXX BLEVINS RN Amended: Mckay added. Addendum: 07/10/18 at 1804 by ALEXX BLEVINS RN Amended: Mckay added. Addendum: 07/10/18 at 1807 by ALEXX BLEVINS RN Amended: Links added.
--- NOTE | 2018-07-10 17:30 | NUR ---
placed back on ac mode to rest for tonight. propofol drip at 15 mcg/kg/min Addendum: 07/10/18 at 1804 by ALEXX BLEVINS RN Amended: Links added. Addendum: 07/10/18 at 1807 by ALEXX BLEVINS RN Amended: Links added.
--- NOTE | 2018-07-10 18:03 | NUR ---
PT REMAINS ON MARINELLI VENT, SETTINGS AC 12, Vt 550, +5, 30% FIO2. ALARSM ARE ON AND AUDIBLE, BVM AT BEDSIDE. 7.5 ETT IS PATENT AND SECURED WITH ANCHOR FAST, APPROX 23CM LIP. TOLERATED WEANING TRIAL WELL ON CPAP/PS 6 FOR MOST OF DAY. PLACED BACK ON PREVIOUS SETTINGS. WILL RESUME WEANING TRIAL TOMORROW PER MD ORDERS.
--- NOTE | 2018-07-10 19:30 | NUR ---
patient in bed orally intubated on ac 12/550 /fio2 30% peep 5 ,7.5 ,23 on the lip ,tolerating vent setting saturation 98 % rr 16 . breathing even and unlabored .oral care done ,suction via mouth and via ett oral . on propofol for sedation ,patient moved upper and lower extremities,moved head from side to side open eyes half way but doesn't follow commands ,restraints in placed and follow restraints protocol . tube feeding in progress on Glucerna 1.2 at 50 ml/hr checked residual 10 ml .abdomen round but soft .hob up . aspiration precaution observed .f/c to bsd with yellowish urine as endorsed adequate urinary output .continue to monitor v/s and levels of comfort .
--- NOTE | 2018-07-10 19:30 | NUR ---
Pt received sedated, in semi bajwa's, and orally intubated on continuous mechanical ventilation via 7.5 ETT secured at 23cm lip line. ETT secured with AnchorFast device. Good skin integrity noted under area of application. No skin tears or breakdown noted. Pt is on Pagan vent with ordered settings of A/C-12, VT-550, PEEP+5, FIO2-30% Pt tolerating vent settings well. No signs or symptoms of respiratory distress noted. SpO2-98% Sxn'd small amounts of thin white/yellow secretions. ETT moved periodically to alternating sides of mouth. HME changed. Oral care done. PPE used. Vent alarm parameters checked, on and audible. Vent plugged into red emergency outlet. Bag/valve/mask at bedside. Will continue to monitor.
--- NOTE | 2018-07-10 19:45 | NUR ---
respiratory therapist at bedside,gave patient breathing treatment,oral care and collected sputum for c/s via endotracheal aspirate.
[2018-07-10] MEDS ORDERED: VANCOMYCIN IV 1 G in PREMIXED 0 EACH IV ONE (21:00)
--- NOTE | 2018-07-10 21:34 | NUR ---
noted when off sedation patient reaches for the ETT tube ,doesn't follow commands ,scratches abdomen area, with generalized redness rashes ,given Benadryl prn .
[2018-07-10] MEDS: HYDROCODONE/APAP 5-325MG TABLET PO PRN (21:39)
--- NOTE | 2018-07-10 21:39 | NUR ---
using Virgen allen pain scale patient restless ,facial grimace noted moving upper and lower extremities given [place] prn see emar .
--- NOTE | 2018-07-10 22:00 | NUR ---
turned and reposition patient ,offloaded back and elevated upper and lower extremities with pillow heels of bed ,. scds used to bilateral legs .
[2018-07-11] VITALS (22 sets, daily range): BP systolic 109–154; BP diastolic 2–77
--- NOTE | 2018-07-11 | NUR ---
patient sleeping in bed no s/s of pain or distress breathing even and unlabored continue to monitor v/s and levels of pain .turned and reposition and offloaded back and elevated upper and lower extremities with pillow hob up aspiration precaution observed .
[2018-07-11] MEDS: PROPOFOL 100 ML IV PRN ×3 (01:31→09:38)
--- NOTE | 2018-07-11 04:32 | NUR ---
am care done ,bath patient ,had x1 bm large in amt ,greenish yellowish soft .changed soiled linens and gown skin care done ,zguard applied to sacral and bilateral groin area ,placed Mepilex to sacral area,oral care done suction via ett and via mouth .perineal care and f/c done .turned and reposition .
--- NOTE | 2018-07-11 05:00 | NUR ---
PCXR done by tech at bedside .
[2018-07-11] MEDS: diphenhydrAMINE 50 MG/1 ML VIAL IV PRN ×2 (05:09→18:40)
--- NOTE | 2018-07-11 05:30 | NUR ---
boatswains mate at bedside for am labs .
[2018-07-11 05:51] LABS: BASOPHILS % (AUTO) 0.1 % (0.0-2.0); EOSINOPHILS # (AUTO) 1.4 K/uL (0.0-0.7); EOSINOPHILS % (AUTO) 10.9 % (0.0-7.0); HEMATOCRIT 27.4 % (31.2-41.9); HEMOGLOBIN 9.3 g/dL (10.9-14.3); LYMPHOCYTES # (AUTO) 1.3 K/uL (20.0-40.0); LYMPHOCYTES % (AUTO) 10.3 % (20.5-51.5); MEAN CORPUSCULAR HEMOGLOBIN 28.5 uug (24.7-32.8); MEAN CORPUSCULAR HGB CONC 34 g/dL (32.3-35.6); MEAN CORPUSCULAR VOLUME 84.3 fL (75.5-95.3); MONOCYTES # (AUTO) 0.6 K/uL (2.0-10.0); MONOCYTES % (AUTO) 4.7 % (0.0-11.0); NEUTROPHILS # (AUTO) 9.2 K/uL (1.8-8.9); RED BLOOD CELL COUNT(AUTO) 3.25 MIL/uL (3.63-4.92); WHITE BLOOD COUNT (AUTO) 12.5 K/uL (3.8-11.8)
[2018-07-11 05:58] LABS: CARBON DIOXIDE 25 mmol/L (21-32); CHLORIDE 104 mmol/L (98-107); CREATININE 1.6 mg/dL (0.6-1.3); GLUCOSE 126 mg/dL (74-106); MAGNESIUM 1.9 mg/dL (1.8-2.4); PHOSPHOROUS 4.4 mg/dL (2.5-4.9); POTASSIUM 4.5 mmol/L (3.5-5.1); TRIGLYCERIDES 180 MG/DL (30-150); UREA NITROGEN, BLOOD 31 mg/dL (7-18)
[2018-07-11 06:03] LABS: *CREATININE,URINE 54.9 mg/dL (30-125); *URINE TOTAL PROTEIN RANDOM 20.2 mg/dL (<150/24HR)
[2018-07-11 06:22] LABS: BAND % (MANUAL) 1 % (0-10); EOSINOPHILS % (MANUAL) 11 % (0-8); LYMPHOCYTES % (MANUAL) 9 % (20-40); MONOCYTES % (MANUAL) 5 % (2-10); NEUTROPHILS % (MANUAL) 74 % (42-75)
[2018-07-11 06:24] LABS: PLATELET COUNT (AUTO) 186 K/uL (179-408)
--- NOTE | 2018-07-11 07:30 | NUR ---
RECIEVED PT LYING IN BED, WITH HOB UP AT 35DEGREES. PT IS SEDATED BUT AROUSABLE TO CALL. OPENS EYES AND RESPONSIVE TO LIGHT PAIN. COLOR IS GOOD AND SKIN IS DRY AND WARM TO TOUCH. HR IS SR. PT HAS A PICC LINE ON THE BRANDIE PATENT AND INTACT. PROPOFOL DRIP RUNNING AT 30MCG/KG/MIN INFUSING WELL TO KEEP PT CALM AND SEDATED. PT HAS BILATERAL PITTING EDEMA ON THE UPPER HANDS +2. PT HAS AN ETT IN PLACEM CONNECTED TO MECHANICAL VENT WITH A SETTING OF AC-12, VT-550, PEEP-5, FIO2-30%. LUNGS ARE CLEAR WITH DECREASED BS AT THE BASES., SUCTION SMALL AMOUNT OF WHITISH PHLEGM. O2SAT 97-100%.
--- NOTE | 2018-07-11 07:40 | NUR ---
RECEIVED PT ON CONTINUOUS VENT AC 12 VT 550 PEEP 5 FIO2 30%. BS EQUAL BILAT. ETT 7.5 SECURED APPROXIMATELY AT 23 CM LIP LINE. REPOSITIONED ETT TO LEFT SIDE OF MOUTH. SUCTION PRN. PLACED PT ON CPAP PSV 6 PER WEANING ORDER. PT TOLERATING CURRENT SETTINGS AT THIS TIME. WILL CONTINUE TO MONITOR.
--- NOTE | 2018-07-11 08:00 | NUR ---
VENT SETTING PLACED ON CPAP, PSV-6 ORDERED. PT IS TOLERATING WELL.
[2018-07-11] MEDS: ENOXAPARIN SODIUM 30 MG/0.3 ML DISP.SYRIN SUBCUT SCH (08:57)
[2018-07-11] MEDS: PANTOPRAZOLE ORAL SUSPENSION 40 MG SUSPDR.PKT GT SCH (08:58)
[2018-07-11] MEDS: METOPROLOL TARTRATE 25 MG TABLET GT SCH ×2 (08:59→20:35)
[2018-07-11] MEDS: Z GUARD REMEDY PASTE 57 GM TUBE TOP SCH ×2 (08:59→21:35)
[2018-07-11 09:03] LABS: ABG BASE EXCESS 2.7 mmol/L; ABG PCO2 46.3 mmHg (35.0-45.0); ABG PH 7.399 (7.350-7.450); ABG SITE LEFT BRACHIAL; ABG TOTAL HEMOGLOBIN 10.1 G/dL (12.0-16.0); MetHb 0.3 % (0.0-1.5); O2Hb 94.4 % (94.0-97.0); VENT MODE VENT - CPAP
--- NOTE | 2018-07-11 10:00 | NUR ---
TUBE FEEDING OF GLUCERNA 1.2 VIA NGT ON THE LEFT NARES STARTED AT 50ML/HR D5RNEXMS. NO RESIDUALS NOTED. PT HAS DIARRHEA YELLOEWISH GREENISH STOOL. FOLEYCATHETER INTACT, DRAINING CLEAR YELLOW URINE GOOD AMOUNT. DRESSING ON THE LEFT LEG INTACT.
[2018-07-11] MEDS: GLUCERNA 1.2 1000ML LIQUID GT PRN (10:22)
[2018-07-11] MEDS: IV NORMAL SALINE 250 ML IV PRN (11:10)
[2018-07-11] MEDS ORDERED: FUROSEMIDE 40 MG/4 ML VIAL IV SCH (12:00)
--- NOTE | 2018-07-11 12:15 | NUR ---
FLEXISEAL RECTAL TUBE INSERTED ORDERED. PT IS CONSTANTLY HAVING LOOSE BM. SEEN AND EXAMINED BY DR REILLY WITH NEW ORDERS NOTED.
--- NOTE | 2018-07-11 12:18 | NUR ---
Clinical pharmacy note-Vancomycin dosing per pharmacy Subjective: To continue Vancomycin dosing on this 73 yo female patient for LLE cellulitis(failed outpatient) Objective: BUN 31 Scr 1.6 WBC 12.5 Temp 99.3 Ht 162, 56 cm Wt 79.832kg random with am labs today 19.9 Random on 07/11 at 1700: pending Assessment/Plan: As renal function still unstable, will continue to dose per levels. Since patient received vanco 1gm vanco at 2100 last night. Will check vanco random level today at 1700 & re-dose if appropriate. Will follow
--- NOTE | 2018-07-11 12:20 | NUR ---
PT MEDICATED WITH LASIX 40MG SLOW IVP ORDERED.
--- NOTE | 2018-07-11 12:45 | NUR ---
SEEN AND EXAMINED BY DR XIAO WITH NEW ORDER.
[2018-07-11] MEDS ORDERED: DC PROPOFOL ONCE EXTUBATED XX PRN (13:00)
--- NOTE | 2018-07-11 13:00 | NUR ---
SEEN AND EXAMINED BY DR CHÁVEZ WITH NEW ORDER TO EXTUBATE THE PT. STARTED WEANING OFF PROPOFOL DRIP.
[2018-07-11] MEDS: LEVOFLOXACIN 250MG /D5W 250 MG in PREMIXED 1 EACH IV SCH (14:03)
--- NOTE | 2018-07-11 14:20 | NUR ---
PROPOFOL DRIP IS OFF. PT IS EXTUBATED BY RT SUCCESSFULLY AND PLACED THE PT ON O2 AT 3LNC. PT IS AWAKE AND RESPONSIVE. SUCTIONED ORALLY AND PT IS COOPERATIVE. O2SAT IS BETWEEN 97-99%.
--- NOTE | 2018-07-11 14:20 | NUR ---
Pt extubated and placed on nasal cannula 3Lpm , spo2 98% . pt awake and alert. no distress noted.
[2018-07-11] MEDS: HYDROCODONE/APAP 5-325MG TABLET PO PRN (18:38)
--- NOTE | 2018-07-11 18:45 | NUR ---
PT IS GRIMACING AND ITCHING A LOT AND BP IS GOING UP. MEDICATED WITH BENADRYL 25MG SLOW IVP AND NORCO GIVEN VIA NGT. SLEEPING ON AND OFF. NO APPARENT RESPIRATORY DISTRESS NOTED.
--- NOTE | 2018-07-11 19:45 | NUR ---
patient in bed s/p extubated at 1430, patient now on nasal cannula at 3 liter /min .tolerating o2 saturation 98% rr 20,no s/s of respiratory distress .SR on the heart monitor .NGT on TF on Glucerna 1.2 at 50 ml/hr tolerating checked residual 10 ml .f/c to bsd, rectal tube patent .continue to monitor v/s and levels of comfort.
--- NOTE | 2018-07-11 21:42 | NUR ---
patient more awake and verbal ,as per patient she said call the police they have me hostage ,reoriented patient and informed she is in the hospital,when asked where is lives she replied Im homeless . asked if she has family she said there all .restraints still implemented patient trying to get oob at times anxious advised to stay in bed ,call light placed in her hand and advised to call for help .continue to monitor v/s and levels of comfort .
--- NOTE | 2018-07-11 22:30 | NUR ---
patient noted to be more verbal and able to verbalized intent as per patient she wants to be reposition ,done turned and reposition patient hob up . elevated upper and lower extremities with pillow . reeducated patient and informed shes in hospital; constant reminding needed and reorientation . .
[2018-07-12] VITALS (24 sets, daily range): BP systolic 98–161; BP diastolic 50–90
--- NOTE | 2018-07-12 | NUR ---
flexiseal /rectal tube in place with brownish liquid stool about 150 ml .i and os done ,f./c intact with adequate urinary output urine yellowish in color .oral/mouth care done .
[2018-07-12] MEDS: ACETAMINOPHEN 325 MG TABLET PO PRN ×2 (01:00→14:54)
[2018-07-12] MEDS: diphenhydrAMINE 50 MG/1 ML VIAL IV PRN ×4 (01:00→20:34)
--- NOTE | 2018-07-12 01:00 | NUR ---
given Benadryl at 0100 for patient scratching abdomen area ,scan medication but did not registered ,did a administered schedule .
[2018-07-12] MEDS: IV NORMAL SALINE 250 ML IV PRN (04:28)
--- NOTE | 2018-07-12 04:30 | NUR ---
am care done ,bath patient ,skin care done follow wound care treatment recommendation .oral care done .f/c done .rectal tube in placed and patent ,changed soiled linens and gown turned and reposition .hob up .
[2018-07-12 05:05] LABS: BASOPHILS % (AUTO) 0.3 % (0.0-2.0); EOSINOPHILS # (AUTO) 1.6 K/uL (0.0-0.7); EOSINOPHILS % (AUTO) 10.4 % (0.0-7.0); HEMATOCRIT 31.5 % (31.2-41.9); HEMOGLOBIN 10.5 g/dL (10.9-14.3); LYMPHOCYTES # (AUTO) 1.4 K/uL (20.0-40.0); LYMPHOCYTES % (AUTO) 9.2 % (20.5-51.5); MEAN CORPUSCULAR HEMOGLOBIN 28.3 uug (24.7-32.8); MEAN CORPUSCULAR HGB CONC 34 g/dL (32.3-35.6); MEAN CORPUSCULAR VOLUME 84.4 fL (75.5-95.3); MONOCYTES % (AUTO) 6.8 % (0.0-11.0); NEUTROPHILS # (AUTO) 11.1 K/uL (1.8-8.9); NEUTROPHILS % (AUTO) 73.3 % (38.5-71.5); PLATELET COUNT (AUTO) 255 K/uL (179-408); RED BLOOD CELL COUNT(AUTO) 3.73 MIL/uL (3.63-4.92); WHITE BLOOD COUNT (AUTO) 15.2 K/uL (3.8-11.8)
[2018-07-12 05:07] LABS: ALANINE AMINOTRANSFERASE 72 U/L (14-59); ALKALINE PHOSPHATASE 132 U/L (50-136); ASPARTATE AMINOTRANSFERASE 66 U/L (15-37); BILIRUBIN,TOTAL 0.3 mg/dL (0.2-1.0); CARBON DIOXIDE 30 mmol/L (21-32); CHLORIDE 104 mmol/L (98-107); CREATININE 1.6 mg/dL (0.6-1.3); GLUCOSE 137 mg/dL (74-106); MAGNESIUM 1.8 mg/dL (1.8-2.4); POTASSIUM 4.5 mmol/L (3.5-5.1); TOTAL PROTEIN, SERUM 6.4 g/dL (6.4-8.2); UREA NITROGEN, BLOOD 33 mg/dL (7-18)
--- NOTE | 2018-07-12 05:25 | NUR ---
patient more conversant and alert x2. name and place .but forgetful and needs reorientation and reinforcement ,at times verbalizing in want to get up .advised to stay in bed and call light placed with in reach .
--- NOTE | 2018-07-12 07:30 | NUR ---
report received from Philippe DANIELLE, 73 yr old female was admitted on 07/07/18 for left leg cellulitis and s/p cardioplumonary arrest. was extubated yesterday 07/11/18 and on 3 l nasal cannula. is receiving tube feeding of glucerna via ngt but off 6am. will rsume tube fdg at 1000 am. iv tko intact via right upper arm PICC line. chamberlain catheter and flexiseal intact. per reposrt, right arm is flaccid. patient unable to say the last time right arm did not move. rest of extremeita are moving and forceful.. ekg sinus rhthym 95/min bp is stable. Addendum: 07/12/18 at 0828 by ALEXX BLEVINS RN Amended: Links added.
[2018-07-12] MEDS: METOPROLOL TARTRATE 25 MG TABLET GT SCH ×2 (08:41→20:15)
[2018-07-12] MEDS: ENOXAPARIN SODIUM 30 MG/0.3 ML DISP.SYRIN SUBCUT SCH (08:44)
[2018-07-12] MEDS: PANTOPRAZOLE ORAL SUSPENSION 40 MG SUSPDR.PKT GT SCH (08:45)
[2018-07-12] MEDS: Z GUARD REMEDY PASTE 57 GM TUBE TOP SCH ×2 (08:46→20:32)
[2018-07-12] MEDS ORDERED: LORATADINE 10 MG TABLET PO SCH (09:00)
[2018-07-12] MEDS ORDERED: VANCOMYCIN IV 200 ML IV ONE (09:00)
[2018-07-12] MEDS: GLUCERNA 1.2 1000ML LIQUID GT PRN (09:05)
--- NOTE | 2018-07-12 10:00 | NUR ---
bedside swallow done with Radha SCHROEDER patient failed secondary to confusion and unable to follow directions. remained NPO and tube fdg continuous at 50 ml per hr glucerna 1.2 Addendum: 07/12/18 at 1322 by ALEXX BLEVINS RN Amended: Links added.
--- NOTE | 2018-07-12 10:06 | NUR ---
seen by dr Herring.informed of patient's inability to move right arm, compared to other extremities. orders received. will o ct scan of the brain, start PT and swallow eval Addendum: 07/12/18 at 1007 by ALEXX BLEVINS RN Amended: Links added. Addendum: 07/12/18 at 1436 by ALEXX BLEVINS RN CODE STROKE DECLINED SECONDARY TO UNKNOWN LAST KNOWN WELL TIME
--- NOTE | 2018-07-12 10:14 | NUR ---
seen by dr Hong, condition report given. orders received Addendum: 07/12/18 at 1014 by ALEXX BLEVINS RN Amended: Links added.
--- NOTE | 2018-07-12 12:00 | NUR ---
NIHSS done, score of 11 1a)Patient is alert 1b)oriented 1c)follows commands 2) Deviation of gaze toward left side 3)Partial hemianopia on right side 4) Minor facial weakness, slight asymmetry on smiling 5a) Left arm no drift 5b) Right arm no movement 6a) Left leg no drift 6b) Right leg, no effort against gravity 7) No limb ataxia 8) No sensory loss 9) No aphasia 10) Normal articulation 11) Visual inattention to right side Addendum: 07/12/18 at 1339 by MANUEL WILLIAM RN Spoke with Dr Herring. No CTA head/neck needed at this time.
--- NOTE | 2018-07-12 12:23 | NUR ---
Clinical pharmacy note-Vancomycin dosing per pharmacy Subjective: To continue Vancomycin dosing on this 73 yo female patient for LLE cellulitis(failed outpatient) Objective: BUN 31 Scr 1.6 WBC 12.5 Temp 99.3 Ht 162, 56 cm Wt 79.832kg random with am labs today 19.9 Random on 07/11 at 1700: 21.2 Vanco random on 07/12 at 0600: 15.8 Assessment/Plan: As renal function still unstable, will continue to dose per levels. Since Vanco random this am is 15.8, will give vanco 1gm IV today at 0900. Will check vanco random level tomorrow with am labs for further dosing. Will follow
[2018-07-12] MEDS: ASPIRIN 81 MG TAB.CHEW PO SCH (12:44)
[2018-07-12] MEDS: LEVOFLOXACIN 250MG /D5W 250 MG in PREMIXED 1 EACH IV SCH (13:34)
--- NOTE | 2018-07-12 14:00 | NUR ---
wound care done on left leg cellulitis Addendum: 07/12/18 at 1849 by ALEXX BLEVINS RN Amended: Mckay added. Addendum: 07/12/18 at 1851 by ALEXX BLEVINS RN Amended: Mckay donato.
--- NOTE | 2018-07-12 14:34 | NUR ---
MEDICATED FOR SKIN URTICARIA Addendum: 07/12/18 at 1434 by ALEXX BLEVINS RN Amended: Mckay added. Addendum: 07/12/18 at 1456 by ALEXX BLEVINS RN Amended: Mckay added.
[2018-07-12] MEDS: HYDROCODONE/APAP 5-325MG TABLET PO PRN ×2 (14:55→22:25)
--- NOTE | 2018-07-12 14:55 | NUR ---
MEDICATED FOR GENERALIZED DISCOMFORT Addendum: 07/12/18 at 1456 by ALEXX BLEVINS RN Amended: Links added.
--- NOTE | 2018-07-12 16:00 | NUR ---
right arm remains flaccid. right leg weak but able to move. Addendum: 07/12/18 at 1844 by ALEXX BLEVINS RN Amended: Links added. Addendum: 07/12/18 at 1846 by ALEXX BLEVINS RN Amended: Links added. Addendum: 07/12/18 at 1848 by ALEXX BLEVINS RN Amended: Links added. Addendum: 07/12/18 at 1851 by ALEXX BLEVINS RN Amended: Links added.
--- NOTE | 2018-07-12 17:00 | NUR ---
tube fdg continuous/still npo pending swallow Addendum: 07/12/18 at 1847 by ALEXX BLEVINS RN Amended: Mckay added. Addendum: 07/12/18 at 1849 by ALEXX BLEVINS RN Amended: Mckay added. Addendum: 07/12/18 at 1851 by ALEXX BLEVINS RN Amended: Links added.
--- NOTE | 2018-07-12 18:52 | NUR ---
no family visiting Addendum: 07/12/18 at 1852 by ALEXX BLEVINS RN Amended: Links added.
--- NOTE | 2018-07-12 19:30 | NUR ---
Received report from LOLIS COFFEY. Admitted 07/07/18 s/p CPA and left leg cellulitis. Upon admission pt was orally intubated, on 07/11/18 pt was extubated and now stable on 3L NC with O2 sat 96%. Pt arousable to name and touch, speech clear able to follow simple commands. Pt able to state her needs. Right arm flaccid, right leg with mild weakness. Left upper and lower extremities WNL. PICC line on right upper arm intact and patent. NG tube feeding running at 50 mL/hr. For US abdomen in AM, NPO after midnight. Assessment completed. Pt turned and repositioned. Continue to monitor.
[2018-07-12] MEDS: ATORVASTATIN 40 MG TABLET GT SCH (20:15)
--- NOTE | 2018-07-12 20:41 | NUR ---
Pt seen and examined by NEUROLOGIST, DR MCCLELLAN. Treatment and plan of care discussed. Recommends keeping SBP between 150 - 170. Will continue to monitor.
--- NOTE | 2018-07-12 21:50 | NUR ---
ID specialist, RODRICK LIFE SCIENCE TEACHER came to see pt. Report and pt updates given. No new orders.
[2018-07-13] VITALS (21 sets, daily range): BP systolic 118–175; BP diastolic 38–90
[2018-07-13] MEDS: ACETAMINOPHEN 325 MG TABLET PO PRN ×2 (00:16→23:23)
[2018-07-13] MEDS: IV NORMAL SALINE 250 ML IV PRN (03:51)
[2018-07-13 05:10] LABS: ALANINE AMINOTRANSFERASE 64 U/L (14-59); ALKALINE PHOSPHATASE 124 U/L (50-136); ASPARTATE AMINOTRANSFERASE 39 U/L (15-37); BILIRUBIN,TOTAL 0.4 mg/dL (0.2-1.0); CARBON DIOXIDE 31 mmol/L (21-32); CHLORIDE 102 mmol/L (98-107); CREATININE 1.5 mg/dL (0.6-1.3); GLUCOSE 139 mg/dL (74-106); MAGNESIUM 1.8 mg/dL (1.8-2.4); PHOSPHOROUS 4.5 mg/dL (2.5-4.9); POTASSIUM 4.5 mmol/L (3.5-5.1); TOTAL PROTEIN, SERUM 6.6 g/dL (6.4-8.2); UREA NITROGEN, BLOOD 31 mg/dL (7-18); VANCOMYCIN,RANDOM 20.3 ug/mL (18.0-26.0)
[2018-07-13 05:29] LABS: BASOPHILS # (AUTO) 0.2 K/uL (0.0-8.0); EOSINOPHILS # (AUTO) 1.5 K/uL (0.0-0.7); EOSINOPHILS % (AUTO) 7.7 % (0.0-7.0); HEMATOCRIT 30.1 % (31.2-41.9); LYMPHOCYTES # (AUTO) 1.3 K/uL (20.0-40.0); LYMPHOCYTES % (AUTO) 6.5 % (20.5-51.5); MEAN CORPUSCULAR HEMOGLOBIN 28.1 uug (24.7-32.8); MEAN CORPUSCULAR HGB CONC 33 g/dL (32.3-35.6); MEAN CORPUSCULAR VOLUME 84.3 fL (75.5-95.3); MONOCYTES # (AUTO) 1.4 K/uL (2.0-10.0); MONOCYTES % (AUTO) 7.5 % (0.0-11.0); NEUTROPHILS # (AUTO) 14.8 K/uL (1.8-8.9); NEUTROPHILS % (AUTO) 77.3 % (38.5-71.5); PLATELET COUNT (AUTO) 276 K/uL (179-408); RED BLOOD CELL COUNT(AUTO) 3.57 MIL/uL (3.63-4.92); WHITE BLOOD COUNT (AUTO) 19.2 K/uL (3.8-11.8)
--- NOTE | 2018-07-13 06:41 | NUR ---
Stable on 3 L NC; sat above 95%. Kept NPO after midnight for US of abdomen this am. Patient awake, oriented to name and place. Asking for something to drink every time she's awake. Advised appropriately.
[2018-07-13 07:00] LABS: EOSINOPHILS % (MANUAL) 7 % (0-8); MONOCYTES % (MANUAL) 7 % (2-10); NEUTROPHILS % (MANUAL) 77 % (42-75)
[2018-07-13 07:01] LABS: LYMPHOCYTES % (MANUAL) 9 % (20-40)
[2018-07-13] MEDS: METOPROLOL TARTRATE 25 MG TABLET GT SCH ×2 (09:26→21:19)
[2018-07-13] MEDS: diphenhydrAMINE 50 MG/1 ML VIAL IV PRN ×3 (09:27→21:18)
[2018-07-13] MEDS: HYDROCODONE/APAP 5-325MG TABLET PO PRN ×3 (09:27→21:18)
--- NOTE | 2018-07-13 09:27 | NUR ---
medicated for generalized discomfort Addendum: 07/13/18 at 1041 by ALEXX BLEVINS RN Amended: Mckay added. Addendum: 07/13/18 at 1041 by ALEXX BLEVINS RN Amended: Mckay donato.
[2018-07-13] MEDS: ASPIRIN 81 MG TAB.CHEW PO SCH (09:28)
[2018-07-13] MEDS: ENOXAPARIN SODIUM 30 MG/0.3 ML DISP.SYRIN SUBCUT SCH (09:28)
[2018-07-13] MEDS: PANTOPRAZOLE ORAL SUSPENSION 40 MG SUSPDR.PKT GT SCH (09:28)
[2018-07-13] MEDS: Z GUARD REMEDY PASTE 57 GM TUBE TOP SCH ×2 (09:29→21:20)
[2018-07-13 09:37] LABS: ABG BASE EXCESS 4.5 mmol/L; ABG HCO3 28.7 mmol/L; ABG PCO2 41.2 mmHg (35.0-45.0); ABG PH 7.461 (7.350-7.450); ABG PO2 87.1 mmHg (75.0-100.0); ABG SITE RIGHT RADIAL; ABG TOTAL HEMOGLOBIN 10.7 G/dL (12.0-16.0); MetHb 0.3 % (0.0-1.5); O2Hb 95.6 % (94.0-97.0); VENT MODE Nasal Cannula
--- NOTE | 2018-07-13 10:36 | NUR ---
Medicated with benadryl for skin itchiness Addendum: 07/13/18 at 1040 by ALEXX BLEVINS RN Amended: Mckay added. Addendum: 07/13/18 at 1041 by ALEXX BLEVINS RN Amended: Links added. Addendum: 07/13/18 at 1041 by ALEXX BLEVINS RN Amended: Links added.
--- NOTE | 2018-07-13 10:41 | NUR ---
seen by dr Hong. orders received Addendum: 07/13/18 at 1041 by ALEXX BLEVINS RN Amended: Links added.
--- NOTE | 2018-07-13 11:00 | NUR ---
seen by dr obrien. orders received Addendum: 07/13/18 at 1724 by ALEXX BLEVINS RN Amended: Links added.
--- NOTE | 2018-07-13 11:55 | NUR ---
Clinical pharmacy note-Vancomycin dosing per pharmacy Subjective: To continue Vancomycin dosing on this 73 yo female patient for LLE cellulitis(failed outpatient) Objective: BUN 31 Scr 1.6 WBC 12.5 Temp 99.3 Ht 162, 56 cm Wt 79.832kg random with am labs today 19.9 Random on 07/11 at 1700: 21.2 Vanco random on 07/12 at 0600: 15.8 Vanco random on 07/13 at 0600: 20.5 Assessment/Plan: As renal function still unstable, will continue to dose per levels. Since Vanco random this am is 20.5, will give vanco 1gm IV today at 1600 (expected vanco trough will be between 15-18 mcg/ml). Will check vanco random level tomorrow at 1800 for further dosing. Will follow
[2018-07-13] MEDS: LEVOFLOXACIN 250MG /D5W 250 MG in PREMIXED 1 EACH IV SCH (13:46)
[2018-07-13] MEDS: GLUCERNA 1.2 1000ML LIQUID GT PRN (13:46)
--- NOTE | 2018-07-13 15:20 | NUR ---
echo with bubble study done at the bedside Addendum: 07/13/18 at 1532 by ALEXX BLEVINS RN Amended: Links added.
[2018-07-13] MEDS ORDERED: VANCOMYCIN IV 1 G in PREMIXED 0 EACH IV ONE (16:00)
--- NOTE | 2018-07-13 16:45 | NUR ---
pm care done. wound care done. placed on room air. o2 sat down to 83% sat. placed back on 2 liters nasal cannula. Addendum: 07/13/18 at 1645 by ALEXX BLEVINS RN Amended: Links added.
--- NOTE | 2018-07-13 16:46 | NUR ---
mittens to left hand applied to prevent patient from getting out of bed and also from scratching skin. Addendum: 07/13/18 at 1646 by ALEXX BLEVINS RN Amended: Mckay added. Addendum: 07/13/18 at 164 by ALEXX BLEVINS RN Amended: Links added. Addendum: 07/13/18 at 1649 by ALEXX BLEVINS RN Amended: Links added. Addendum: 07/13/18 at 1649 by ALEXX BLEVINS RN Amended: Links added.
--- NOTE | 2018-07-13 16:48 | NUR ---
o2 titrated up to 3l nc to keep o2 sat 94% Addendum: 07/13/18 at 1648 by ALEXX BLEVINS RN Amended: Links added. Addendum: 07/13/18 at 164 by ALEXX BLEVINS RN Amended: Links added. Addendum: 07/13/18 at 1649 by ALEXX BLEVINS RN Amended: Links added.
--- NOTE | 2018-07-13 16:50 | NUR ---
transfer orders obtained from Dr Montalvo to telemetry with sitter for safety. coordinated with [facility] supervisor mixing Baldev and Charge nurse Galvan Addendum: 07/13/18 at 1651 by ALEXX BLEVINS RN Amended: Links added. Addendum: 07/13/18 at 1653 by ALEXX BLEVINS RN Amended: Links added.
--- NOTE | 2018-07-13 16:53 | NUR ---
swallow eval will be done tomorrow when she is more cooperative.. tube fdg is continuous at 50ml/hr Addendum: 07/13/18 at 1653 by ALEXX BLEVINS RN Amended: Links added.
--- NOTE | 2018-07-13 19:21 | NUR ---
CARLOS report given to Radha/Lyudmila DANIELLE. Addendum: 07/13/18 at 1922 by ALEXX BLEVINS RN Amended: Links added.
--- NOTE | 2018-07-13 19:45 | NUR ---
Report received. Patient awake, restless in bed. Repositioned. Oriented to name and place. Follows simple commands. O2 3 L NC. Denies SOB. With NGT feedings at 50 ml/H. Patient asking for water and OJ. Advised appropriately. Addendum: 07/13/18 at 2344 by STALIN GONZALES RN Amended: Links added. Addendum: 07/13/18 at 2350 by STALIN GONZALES RN Amended: Links added.
--- NOTE | 2018-07-13 20:18 | NUR ---
During NIHSS scale assessment patient unable to see anything on her L side. This is a change from our assessment from last night. Remains oriented to name and place. Code stroke called. Call placed to Drs. Cueva and Raulito. Dr. Cueva called back immediately. Informed of patient's changed in condition. Addendum: 07/13/18 at 2350 by STALIN GONZALES RN Amended: Links added.
--- NOTE | 2018-07-13 20:19 | NUR ---
Gxlpuuyxa=[id number]. Code stroke team here. Labs drawn.
--- NOTE | 2018-07-13 20:27 | NUR ---
Transported to CT scan with full monitoring.
[2018-07-13 20:37] LABS: BASOPHILS % (AUTO) 0.2 % (0.0-2.0); EOSINOPHILS # (AUTO) 1.3 K/uL (0.0-0.7); EOSINOPHILS % (AUTO) 6.9 % (0.0-7.0); HEMATOCRIT 29.2 % (31.2-41.9); HEMOGLOBIN 9.6 g/dL (10.9-14.3); LYMPHOCYTES # (AUTO) 1.6 K/uL (20.0-40.0); MEAN CORPUSCULAR HGB CONC 33 g/dL (32.3-35.6); MEAN CORPUSCULAR VOLUME 85.3 fL (75.5-95.3); MONOCYTES # (AUTO) 1.3 K/uL (2.0-10.0); MONOCYTES % (AUTO) 7.1 % (0.0-11.0); NEUTROPHILS # (AUTO) 14.2 K/uL (1.8-8.9); NEUTROPHILS % (AUTO) 76.8 % (38.5-71.5); PLATELET COUNT (AUTO) 279 K/uL (179-408); RED BLOOD CELL COUNT(AUTO) 3.42 MIL/uL (3.63-4.92); WHITE BLOOD COUNT (AUTO) 18.4 K/uL (3.8-11.8)
[2018-07-13 20:41] LABS: CARBON DIOXIDE 31 mmol/L (21-32); CHLORIDE 101 mmol/L (98-107); CREATININE 1.5 mg/dL (0.6-1.3); GLUCOSE 121 mg/dL (74-106); POTASSIUM 4.1 mmol/L (3.5-5.1); UREA NITROGEN, BLOOD 39 mg/dL (7-18)
--- NOTE | 2018-07-13 20:44 | NUR ---
Back from CT scan. Patient remains alert, oriented to name and place. R arm flaccid and R leg with mild rigidity.
--- NOTE | 2018-07-13 20:48 | NUR ---
Received a call from radiologist Dr. Bartlett re: Head CT scan results. CT has no change from previous scan of 07/12/18. Call placed to Drs. Cabezas and Anay. Dr. Cabezas called back; informed of CT results. Claims to continue to monitor patient for now and continue Lovenox and ASA.
[2018-07-13 20:57] LABS: BAND % (MANUAL) 7 % (0-10); EOSINOPHILS % (MANUAL) 7 % (0-8); LYMPHOCYTES % (MANUAL) 11 % (20-40); MONOCYTES % (MANUAL) 5 % (2-10); MYELOCYTES % 1 % (0-0); NEUTROPHILS % (MANUAL) 69 % (42-75)
--- NOTE | 2018-07-13 21:15 | NUR ---
Patient remains restless in bed. scratching and very uncomfortable. Have to be repositioned many times. Medicated with [place] via patent NGT and Benadryl IV. Monitored closely. Addendum: 07/14/18 at 0036 by STALIN GONZALES RN Amended: Links added.
[2018-07-13] MEDS: ATORVASTATIN 40 MG TABLET GT SCH (21:19)
[2018-07-14] VITALS (12 sets, daily range): BP systolic 107–163; BP diastolic 48–83
--- NOTE | 2018-07-14 | NUR ---
No neuro changes. Still mildly restless. Needed to be repositioned frequently. Coughing non productively. Gets increasingly agitated with oral care and suctioning. Advised appropriately.
[2018-07-14] MEDS: IV NORMAL SALINE 250 ML IV PRN (02:37)
--- NOTE | 2018-07-14 04:30 | NUR ---
Wound care treatment done. Patient remains restless in bed most of the time. Scratching; rashes resolving. Repositioned PRN. Wants orange juice. Patient is high risk for aspiration. Advised. For swallow evaluation this am. Medicated with Benadryl IV. Addendum: 07/14/18 at 0653 by STALIN GONZALES RN Amended: Links added.
[2018-07-14] MEDS: diphenhydrAMINE 50 MG/1 ML VIAL IV PRN ×2 (04:39→22:55)
[2018-07-14 05:06] LABS: BASOPHILS # (AUTO) 0.1 K/uL (0.0-8.0); BASOPHILS % (AUTO) 0.5 % (0.0-2.0); EOSINOPHILS # (AUTO) 1.1 K/uL (0.0-0.7); EOSINOPHILS % (AUTO) 5.8 % (0.0-7.0); HEMATOCRIT 29.1 % (31.2-41.9); HEMOGLOBIN 9.7 g/dL (10.9-14.3); LYMPHOCYTES # (AUTO) 1.3 K/uL (20.0-40.0); LYMPHOCYTES % (AUTO) 6.7 % (20.5-51.5); MEAN CORPUSCULAR HGB CONC 33 g/dL (32.3-35.6); MEAN CORPUSCULAR VOLUME 84.5 fL (75.5-95.3); MONOCYTES # (AUTO) 1.4 K/uL (2.0-10.0); MONOCYTES % (AUTO) 7.3 % (0.0-11.0); NEUTROPHILS # (AUTO) 15.3 K/uL (1.8-8.9); NEUTROPHILS % (AUTO) 79.7 % (38.5-71.5); PLATELET COUNT (AUTO) 276 K/uL (179-408); RED BLOOD CELL COUNT(AUTO) 3.45 MIL/uL (3.63-4.92); WHITE BLOOD COUNT (AUTO) 19.1 K/uL (3.8-11.8)
[2018-07-14 05:31] LABS: CARBON DIOXIDE 30 mmol/L (21-32); CHLORIDE 102 mmol/L (98-107); CREATININE 1.4 mg/dL (0.6-1.3); GLUCOSE 145 mg/dL (74-106); PHOSPHOROUS 4.6 mg/dL (2.5-4.9); POTASSIUM 4.1 mmol/L (3.5-5.1); UREA NITROGEN, BLOOD 40 mg/dL (7-18)
[2018-07-14 06:10] LABS: HEPATITIS B SURFACE AB Non Reactive (.); HEPATITIS B SURFACE AG Negative (Negative)
[2018-07-14 06:21] LABS: BAND % (MANUAL) 2 % (0-10); EOSINOPHILS % (MANUAL) 2 % (0-8); LYMPHOCYTES % (MANUAL) 8 % (20-40); METAMYELOCYTES % 1 % (0-1); MONOCYTES % (MANUAL) 3 % (2-10); MYELOCYTES % 1 % (0-0); NEUTROPHILS % (MANUAL) 83 % (42-75)
--- NOTE | 2018-07-14 06:54 | NUR ---
Condition unchanged. Still restless in bed and repositioned frequently for comfort. Safety and fall precautions maintained.
--- NOTE | 2018-07-14 07:15 | NUR ---
Received pt. in bed AAOx3. vitals stable. Restless agitated, LUE restrained attempting to removed NG. tube, and IV access. At this time pt. able to move BLE off bed. Pt. repositioned and left HOB at 45degrees. Will continue to monitor.
[2018-07-14] MEDS: ASPIRIN 81 MG TAB.CHEW PO SCH (08:07)
[2018-07-14] MEDS: METOPROLOL TARTRATE 25 MG TABLET GT SCH ×2 (08:07→20:23)
[2018-07-14] MEDS: PANTOPRAZOLE ORAL SUSPENSION 40 MG SUSPDR.PKT GT SCH (08:07)
[2018-07-14] MEDS: Z GUARD REMEDY PASTE 57 GM TUBE TOP SCH ×2 (08:08→20:24)
[2018-07-14] MEDS: ENOXAPARIN SODIUM 30 MG/0.3 ML DISP.SYRIN SUBCUT SCH (08:09)
[2018-07-14] MEDS: LORATADINE 10 MG TABLET PO SCH (08:18)
--- NOTE | 2018-07-14 09:15 | NUR ---
Attending physician in the unit to examine pt. informed that NG feeding on hold for safety precautions and pt. awaiting swallow evaluation. Patient restless, and agitated at this time.
--- NOTE | 2018-07-14 11:13 | NUR ---
Clinical pharmacy note-Vancomycin dosing per pharmacy Subjective: To continue Vancomycin dosing on this 73 yo female patient for LLE cellulitis(failed outpatient) Objective: BUN 31 Scr 1.6 WBC 12.5 Temp 99.3 Ht 162, 56 cm Wt 79.832kg random with am labs today 19.9 Random on 07/11 at 1700: 21.2 Vanco random on 07/12 at 0600: 15.8 Vanco random on 07/13 at 0600: 20.5 Vanco random level on 07/14 at 1800: pending Assessment/Plan: As renal function still unstable, will continue to dose per levels. Will check vanco random level due today at 1800 for further dosing. Will follow Addendum: 07/14/18 at 2122 by DANGELO HAMMER Vancomycin random level was 16.9 @ 1800 . Administered 1 more dose of Vancomycin 1 gm , Will continue monitor renal fxn and level and adjust dose accordingly
--- NOTE | 2018-07-14 12:05 | NUR ---
A call for report as informed by CN awaiting bed reassignment.
--- NOTE | 2018-07-14 13:30 | NUR ---
RECIEVED PT FROM CCU VIA BED, DOWNGRADED TO TELE STATUS, A 73 YO FEMALE. AWAKE AND ORIENTED X TO HER NAME. VERBALLY RESPONSIVE AND SPEECH IS CLEAR. FACE HAS A SLIGHT RIGHT SIDED FACIAL DROOP. PERRLA AT 1MM. HAS RIGHT SIDED WEAKNESS, WITH RIGHT UPPER ARM BEING FLACCID. PT FOLLOWS COMMANDS. PT ON TELE, HR IS SR WITH OCCASSIONAL PAC'S. PICC LINE WITH TRIPLE LUMEN PORTS INTACT ON THE BRANDIE. NO APPARENT RESPIRATORY DISTRESS NOTED. PT ON 02 2LNC AND LUNGS ARE CLEAR WITH DECREASED BS. COUGHS ON AND OFF AND ABLE TO EXPECTORATE PHLEGM. AFEBRILE.
--- NOTE | 2018-07-14 13:36 | NUR ---
Pt. taken up to room 313. awaiting call back from R.N for report.
--- NOTE | 2018-07-14 13:50 | NUR ---
Telephone report given to Elva Owens and mitchel. all questions answer. Belongings sent with patient
--- NOTE | 2018-07-14 14:30 | NUR ---
SWALLOW EVALUATION DONE AT THE BEDSIDE BY THE SPEECH THERAPIST, RECOMMENDED AND ORDERED PUREE DIET (CARDIAC)
--- NOTE | 2018-07-14 15:30 | NUR ---
SEEN AND EXAMINED BY DR GOLDSMITH WITH NO ORDERS MADE. PT IS 1 ON 1 SITTER, RESTRAINT IS OFF. NGT REMOVED AND PT IS TAKING THICKENED LIQUIDS WELL.
--- NOTE | 2018-07-14 16:00 | NUR ---
ABDOMEN IS SLIGHTLY DISTENDED WITH HYPERACTIVE BS NOTED. PT HAS A FLEXISEAL FOR INCONTINENCE OF LIQUIDS STOOLS, DRAINING MOD AMOUNT.
[2018-07-14] MEDS: LEVOFLOXACIN 250MG /D5W 250 MG in PREMIXED 1 EACH IV SCH (16:36)
--- NOTE | 2018-07-14 19:25 | NUR ---
RECEIVED PT AWAKE, ALERT AND ORIENTEDX2. PT SHOWS NO SIGN OF ACUTE DISTRESS. IV INTACT. SCHERER INTACT. FLEXISEAL INTACT.CALL LIGHT WITHIN REACH. SAFETY AND COMFORT PROVIDED. WILL CONTINUE TO MONITOR.
[2018-07-14] MEDS: ACETAMINOPHEN 325 MG TABLET PO PRN (20:04)
[2018-07-14] MEDS: ATORVASTATIN 40 MG TABLET GT SCH (20:04)
[2018-07-14] MEDS ORDERED: VANCOMYCIN IV 1 G in PREMIXED 0 EACH IV ONE (22:00)
[2018-07-14] MEDS: HYDROCODONE/APAP 5-325MG TABLET PO PRN (23:47)
[2018-07-15 03:35] VITALS: BP 134/55
--- NOTE | 2018-07-15 06:24 | NUR ---
PT SLEPT INTERMITTENTLY. PT SHOWS NO SIGNS OF ACUTE DISTRESS. IV INTACT. PRESCRIBED MEDICATION GIVEN AND PT TOLERATED IT WELL.PT GIVEN NORCO AT 2347H FOR PAIN. PT TOLERATED IT WELL. PT HAVE EPISODES OF CONFUSION . SHE WANTS TO GET OUT OF THE BED. PT SEVERAL TIMES PULLING OUT HER HEART MONITOR AND TRYING TO PULL OUT HER PICC LINE. PT ON NASAL CANNULA. PT HAVE COUGH. SAFETY AND COMFORT PROVIDED. ALL NEEDS ARE MET. WILL ENDORSE ACCORDINGLY TO INCOMING NURSE FOR CONTINUITY OF CARE.
--- NOTE | 2018-07-15 07:15 | NUR ---
PATIENT RECIEVED FROM HOUSE MOVER SUPERVISOR , PATIENT IN BED, AWAKE AND RESTLESS, TAKING OF CLOTHES,PATIENT REORIENTED, COMFORTED, AND REPOSITIONED, BED ALARM IS ON, IN LOW POSITION,SIDE RALES UP X2, WILL CONTINUE TO MONITOR
[2018-07-15] MEDS: PANTOPRAZOLE ORAL SUSPENSION 40 MG SUSPDR.PKT GT SCH (09:22)
[2018-07-15] MEDS: LORATADINE 10 MG TABLET PO SCH (09:22)
[2018-07-15] MEDS: ASPIRIN 81 MG TAB.CHEW PO SCH (09:22)
[2018-07-15] MEDS: ENOXAPARIN SODIUM 30 MG/0.3 ML DISP.SYRIN SUBCUT SCH (09:25)
[2018-07-15] MEDS: Z GUARD REMEDY PASTE 57 GM TUBE TOP SCH ×2 (09:28→20:28)
[2018-07-15] MEDS: METOPROLOL TARTRATE 25 MG TABLET GT SCH ×2 (09:28→20:27)
[2018-07-15 12:00] VITALS: BP 118/51
--- NOTE | 2018-07-15 12:01 | NUR ---
Clinical pharmacy note-Vancomycin dosing per pharmacy Subjective: To continue Vancomycin dosing on this 73 yo female patient for LLE cellulitis(failed outpatient) Objective: BUN 40 (07/14) Scr 1.4 (07/14) WBC 19.1 (07/14) Temp 98.6 Ht 162, 56 cm Wt 79.832kg random with am labs today 19.9 Random on 07/11 at 1700: 21.2 Vanco random on 07/12 at 0600: 15.8 Vanco random on 07/13 at 0600: 20.5 Vanco random level on 07/14 at 1800: 16.9 Random level 07/15 @ 1800: pending Assessment/Plan: As renal function remains unstable, will continue to dose per level. Last 1gm vanco dosed 07/14 @2100. Next random due ronny at 1800. Will check level at that time and re-dose as needed. Will follow Addendum: 07/15/18 at 1943 by RONNIE HAMMER VANCOMYCIN RANDOM SCHEDULED FOR 1800 TODAY, PATIENT WILL BE TRANSFERRED TO [facility] AT 1999. RANDOM WILL NOT BE MEASURED TO GIVE DOSE.
[2018-07-15] MEDS ORDERED: ENOX30DI SUBCUT (14:47)
[2018-07-15] MEDS ORDERED: HYDR-3326 PO (14:47)
[2018-07-15] MEDS ORDERED: METO25TA6 GT (14:47)
[2018-07-15] MEDS ORDERED: RXVAN XX (14:47)
[2018-07-15] MEDS ORDERED: ASPI81TA31 PO (14:47)
[2018-07-15] MEDS ORDERED: ATOR40TA GT (14:47)
[2018-07-15] MEDS ORDERED: PANT40SU2 GT (14:47)
[2018-07-15] MEDS: LEVOFLOXACIN 250MG /D5W 250 MG in PREMIXED 1 EACH IV SCH (15:00)
[2018-07-15 15:39] VITALS: BP 122/64
--- NOTE | 2018-07-15 19:25 | NUR ---
RECEIVED PT AWAKE ,ALERT AND ORIENTEDX2. PT SHOWS NO SIGNS OF ACUTE DISTRESS. IV INTACT.PT TO BE DISCHARGE. WAITING FOR [facility] ETA IS 2000H. PT TO BE DISCHARGE WITH SCHERER CATHETER AND THE PICC LINE. PT TAKING OFF HER CLOTHES.CALL LIGHT WITHIN REACH. BED ALARM ON.SAFETY AND COMFORT PROVIDED. WILL CONTINUE TO MONITOR.
[2018-07-15 20:00] VITALS: BP 125/57
--- NOTE | 2018-07-15 20:20 | NUR ---
CALLED [facility] TO INFORM THEM PT WILL ARRIVED LATE DUE TO [facility] BEING LATE TO PICK HER UP. PT STABLE. CHARGE NURSE AWARE.
[2018-07-15 20:27] VITALS: BP 125/57
[2018-07-15] MEDS: ACETAMINOPHEN 325 MG TABLET PO PRN (20:27)
[2018-07-15] MEDS: ATORVASTATIN 40 MG TABLET GT SCH (20:27)
--- NOTE | 2018-07-15 23:00 | NUR ---
PT DISCHARGED AND WHEELED OUT VIA GURNEY. PT SHOWS NO SIGNS OF ACUTE DISTRESS. VITAL SIGNS WITHIN NORMAL LIMIT. BELONGING LIST GIVEN. DISCHARGE INSTRUCTION GIVEN. PT UNDERSTAND IT. DISCHARGE PAPER GIVEN TO TAMERA [facility] OF [id number]. PT ID BAND TAKEN OFF. PT WITH PICC LINE AND SCHERER CATHETER INTACT. PT STABLE. CALLED EDSON FROM [facility] THAT PT IS GOING TO HER PLACE.
== END 2018-07-15 23:00 | DRG 64 ==
LOC: ER 14:41 → CCU 19:40 → TELE3 07-14 13:37
PROVIDERS: ADMIT Internal Medicine; ATTEND Internal Medicine
PROC: 5A1945Z Respiratory Ventilation, 24-96 Consecutive Hours (ICD-10-PCS; principal; 2018-07-07)
PROC: 0BH17EZ Insertion of Endotracheal Airway into Trachea, Via Natural or Artificial Opening (ICD-10-PCS; 2018-07-07)
PROC: 0D9670Z Drainage of Stomach with Drainage Device, Via Natural or Artificial Opening (ICD-10-PCS; 2018-07-07)
PROC: 02HV33Z Insertion of Infusion Device into Superior Vena Cava, Percutaneous Approach (ICD-10-PCS; 2018-07-07)
PROC: 5A12012 Performance of Cardiac Output, Single, Manual (ICD-10-PCS; 2018-07-07)
DX: I63.433 Cerebral infarction due to embolism of bilateral posterior cerebral arteries (principal); A41.9 Sepsis, unspecified organism; I46.9 Cardiac arrest, cause unspecified; J96.01 Acute respiratory failure with hypoxia; I21.A1 Myocardial infarction type 2; J18.9 Pneumonia, unspecified organism; G81.91 Hemiplegia, unspecified affecting right dominant side; L03.116 Cellulitis of left lower limb; J90 Pleural effusion, not elsewhere classified; J98.11 Atelectasis; N17.9 Acute kidney failure, unspecified; G93.40 Encephalopathy, unspecified; H53.47 Heteronymous bilateral field defects; R47.01 Aphasia; R29.711 NIHSS score 11; L27.0 Generalized skin eruption due to drugs and medicaments taken internally; T37.0X5D Adverse effect of sulfonamides, subsequent encounter; Z59.0 Homelessness; Z88.2 Allergy status to sulfonamides; B96.1 Klebsiella pneumoniae [K. pneumoniae] as the cause of diseases classified elsewhere; I89.0 Lymphedema, not elsewhere classified; Z98.41 Cataract extraction status, right eye; Z87.440 Personal history of urinary (tract) infections; R13.10 Dysphagia, unspecified; I11.9 Hypertensive heart disease without heart failure; I70.0 Atherosclerosis of aorta; I25.5 Ischemic cardiomyopathy; J32.9 Chronic sinusitis, unspecified; E87.70 Fluid overload, unspecified; M89.9 Disorder of bone, unspecified; D64.9 Anemia, unspecified
CPT/HCPCS: 36415; 36569; 36600; 70030-TC; 70450; 71045; 73590; 76700; 83605; 83735; 84100; 84156; 84300; 84478; 85025; 85730; 86706; 86803; 86850; 86900; 86901; 87040; 87070; 87077; 87086; 87340; 92526; 92610; 92950; 93005; 93307; 94002; 94003; 97110; 97112; 97165; 97530; A4217; A4663; C9113; G0378; G0480; J0171; J1200; J1644; J1650; J1940; J1956; J2060; J2930; J3370; J3475; J3480; J3490; J7030; J7050

== ENCOUNTER 2018-11-02 20:32 | Inpatient (IN) | payer MEDICARE, MEDICAID ==
[~2018-11-02] VITALS: Ht 162.6 cm; Wt 54.4 kg
[~2018-11-02 20:32] MED LIST: ASPI81TA31 PO; ATOR40TA GT; ENOX30DI SUBCUT; HYDR-3326 PO; METO25TA6 GT; PANT40SU2 GT; RXVAN XX
[2018-11-02 21:00] VITALS: BP 144/66
[2018-11-02] MEDS ORDERED: MAGNESIUM HYDROXIDE 30 ML LIQUID UDC PO PRN (21:30)
[2018-11-02] MEDS ORDERED: LORAZEPAM 0.5 MG TABLET PO PRN (21:30)
[2018-11-02] MEDS ORDERED: ZOLPIDEM 5 MG TABLET PO PRN (21:30)
[2018-11-02] MEDS ORDERED: ACETAMINOPHEN 325 MG TABLET PO PRN (21:30)
[2018-11-02] MEDS ORDERED: MAG HYDROX/AL HYDROX/SIMETH 30 ML LIQUID UDC PO PRN (21:30)
[2018-11-02] MEDS ORDERED: ACETAMINOPHEN 650 MG SUPP.RECT RC PRN (21:30)
[2018-11-03] MEDS ORDERED: OLANZAPINE 10 MG VIAL IM ONE (09:00)
[2018-11-03] MEDS ORDERED: LORAZEPAM 0.5 MG TABLET PO PRN (09:15)
[2018-11-03] MEDS ORDERED: LORAZEPAM 1 MG TABLET PO PRN (09:45)
[2018-11-03 10:00] VITALS: BP 120/65
[2018-11-03 16:00] VITALS: BP 116/26
[2018-11-03] MEDS: OLANZAPINE ZYDIS 5 MG TAB.RAPDIS PO SCH (16:26)
[2018-11-03 20:00] VITALS: BP 122/49
[2018-11-04 07:30] VITALS: BP 127/60
[2018-11-04] MEDS ORDERED: SIMV40TA5 PO (08:52)
[2018-11-04] MEDS ORDERED: OXYC-128 PO (08:52)
[2018-11-04] MEDS: OLANZAPINE ZYDIS 5 MG TAB.RAPDIS PO SCH ×2 (09:00→17:00)
[2018-11-04] MEDS ORDERED: CLOP75TA15 PO (09:31)
[2018-11-04] MEDS ORDERED: TRAM50TA2 PO (09:31)
[2018-11-04] MEDS ORDERED: QUET25TA PO (09:31)
[2018-11-04] MEDS ORDERED: METO25TA6 PO (09:31)
[2018-11-04] MEDS ORDERED: ASPI-612 PO (09:31)
[2018-11-04] MEDS ORDERED: NITR0.4T SL (09:31)
[2018-11-04] MEDS: CLOPIDOGREL 75 MG TABLET PO SCH (10:30)
[2018-11-04] MEDS ORDERED: OXYCODONE/APAP 5-325 MG TABLET PO PRN (10:30)
[2018-11-04] MEDS ORDERED: TRAMADOL HCL 50 MG TABLET PO PRN (10:30)
[2018-11-04] MEDS: ASPIRIN 325 MG TABLET PO SCH (10:30)
[2018-11-04] MEDS ORDERED: NITROGLYCERIN 0.4 MG/TAB BOTTLE SL PRN (10:30)
[2018-11-04 16:00] VITALS: BP 116/33
[2018-11-04 20:00] VITALS: BP 122/59
[2018-11-04] MEDS: METOPROLOL TARTRATE 25 MG TABLET PO SCH (20:57)
[2018-11-04] MEDS: SIMVASTATIN 40 MG TABLET PO SCH (20:58)
[2018-11-05 08:00] VITALS: BP 117/48
[2018-11-05] MEDS: ASPIRIN 325 MG TABLET PO SCH (09:00)
[2018-11-05] MEDS: CLOPIDOGREL 75 MG TABLET PO SCH (09:00)
[2018-11-05] MEDS: METOPROLOL TARTRATE 25 MG TABLET PO SCH ×2 (09:00→20:37)
[2018-11-05] MEDS: OLANZAPINE ZYDIS 5 MG TAB.RAPDIS PO SCH ×2 (09:00→16:10)
[2018-11-05 16:00] VITALS: BP 120/85
[2018-11-05] MEDS: SIMVASTATIN 40 MG TABLET PO SCH (20:38)
[2018-11-05 20:48] VITALS: BP 119/50
[2018-11-06 07:30] VITALS: BP 136/45
[2018-11-06] MEDS: OLANZAPINE ZYDIS 5 MG TAB.RAPDIS PO SCH ×2 (09:00→17:00)
[2018-11-06] MEDS: ASPIRIN 325 MG TABLET PO SCH (09:00)
[2018-11-06] MEDS: METOPROLOL TARTRATE 25 MG TABLET PO SCH ×2 (09:00→20:15)
[2018-11-06] MEDS: CLOPIDOGREL 75 MG TABLET PO SCH (09:00)
[2018-11-06 15:36] VITALS: BP 119/50
[2018-11-06 19:56] VITALS: BP 123/59
[2018-11-06] MEDS: SIMVASTATIN 40 MG TABLET PO SCH (20:15)
[2018-11-07 07:30] VITALS: BP 108/33
[2018-11-07] MEDS: METOPROLOL TARTRATE 25 MG TABLET PO SCH ×2 (08:47→20:10)
[2018-11-07] MEDS: ASPIRIN 325 MG TABLET PO SCH (08:47)
[2018-11-07] MEDS: CLOPIDOGREL 75 MG TABLET PO SCH (08:48)
[2018-11-07] MEDS: OLANZAPINE ZYDIS 5 MG TAB.RAPDIS PO SCH ×2 (08:48→17:00)
[2018-11-07 16:00] VITALS: BP 113/32
[2018-11-07] MEDS: SIMVASTATIN 40 MG TABLET PO SCH (20:11)
[2018-11-07 20:36] VITALS: BP 126/37
[2018-11-08 07:30] VITALS: BP 133/56
[2018-11-08] MEDS: CLOPIDOGREL 75 MG TABLET PO SCH ×2 (08:28→09:00)
[2018-11-08] MEDS: ASPIRIN 325 MG TABLET PO SCH ×2 (08:29→09:00)
[2018-11-08] MEDS: METOPROLOL TARTRATE 25 MG TABLET PO SCH ×3 (08:29→21:00)
[2018-11-08] MEDS: OLANZAPINE ZYDIS 5 MG TAB.RAPDIS PO SCH ×3 (08:29→16:29)
[2018-11-08 16:00] VITALS: BP 119/52
[2018-11-08 20:35] VITALS: BP 126/50
[2018-11-08] MEDS: SIMVASTATIN 40 MG TABLET PO SCH (21:00)
[2018-11-09 07:30] VITALS: BP 136/50
[2018-11-09] MEDS: ASPIRIN 325 MG TABLET PO SCH (08:24)
[2018-11-09] MEDS: CLOPIDOGREL 75 MG TABLET PO SCH (08:24)
[2018-11-09] MEDS: OLANZAPINE ZYDIS 5 MG TAB.RAPDIS PO SCH ×2 (08:24→16:32)
[2018-11-09] MEDS: METOPROLOL TARTRATE 25 MG TABLET PO SCH ×2 (08:24→21:00)
[2018-11-09 15:59] VITALS: BP 124/40
[2018-11-09 20:44] VITALS: BP 131/46
[2018-11-09] MEDS: SIMVASTATIN 40 MG TABLET PO SCH (21:00)
[2018-11-10 07:30] VITALS: BP 110/43
[2018-11-10] MEDS: METOPROLOL TARTRATE 25 MG TABLET PO SCH ×2 (08:43→21:00)
[2018-11-10] MEDS: ASPIRIN 325 MG TABLET PO SCH (08:43)
[2018-11-10] MEDS: CLOPIDOGREL 75 MG TABLET PO SCH (08:44)
[2018-11-10] MEDS: OLANZAPINE ZYDIS 5 MG TAB.RAPDIS PO SCH (08:44)
[2018-11-10] MEDS: OLANZAPINE 2.5 MG TABLET PO SCH ×2 (12:15→21:00)
[2018-11-10] MEDS: OLANZAPINE 10 MG VIAL IM PRN ×2 (13:35→22:51)
[2018-11-10] MEDS: SIMVASTATIN 40 MG TABLET PO SCH (21:00)
[2018-11-11] MEDS: CLOPIDOGREL 75 MG TABLET PO SCH (09:00)
[2018-11-11] MEDS: METOPROLOL TARTRATE 25 MG TABLET PO SCH ×2 (09:00→21:00)
[2018-11-11] MEDS: OLANZAPINE 2.5 MG TABLET PO SCH ×2 (09:00→21:00)
[2018-11-11] MEDS: ASPIRIN 325 MG TABLET PO SCH (09:00)
[2018-11-11] MEDS: OLANZAPINE 10 MG VIAL IM PRN ×2 (10:13→21:16)
[2018-11-11] MEDS: SIMVASTATIN 40 MG TABLET PO SCH (21:00)
[2018-11-12] MEDS: OLANZAPINE 2.5 MG TABLET PO SCH (09:00)
[2018-11-12] MEDS: METOPROLOL TARTRATE 25 MG TABLET PO SCH ×2 (09:00→20:42)
[2018-11-12] MEDS: ASPIRIN 325 MG TABLET PO SCH (09:00)
[2018-11-12] MEDS: CLOPIDOGREL 75 MG TABLET PO SCH (09:00)
[2018-11-12] MEDS: HALOPERIDOL LACTATE 5 MG/1 ML VIAL IM SCH (17:00)
[2018-11-12] MEDS: HALOPERIDOL LACTATE 10 MG/5 ML ORAL SOLUTION UDC PO SCH (17:20)
[2018-11-12] MEDS: SIMVASTATIN 40 MG TABLET PO SCH (20:42)
[2018-11-13] MEDS: HALOPERIDOL LACTATE 10 MG/5 ML ORAL SOLUTION UDC PO SCH ×2 (08:35→16:20)
[2018-11-13 08:37] VITALS: BP 119/50
[2018-11-13] MEDS: HALOPERIDOL LACTATE 5 MG/1 ML VIAL IM SCH ×2 (08:43→16:23)
[2018-11-13] MEDS: METOPROLOL TARTRATE 25 MG TABLET PO SCH ×2 (08:43→20:34)
[2018-11-13] MEDS: ASPIRIN 325 MG TABLET PO SCH (08:43)
[2018-11-13] MEDS: CLOPIDOGREL 75 MG TABLET PO SCH (08:44)
[2018-11-13 16:22] VITALS: BP 12/52
[2018-11-13] MEDS: SIMVASTATIN 40 MG TABLET PO SCH (20:35)
[2018-11-14] MEDS: ASPIRIN 325 MG TABLET PO SCH (08:14)
[2018-11-14] MEDS: HALOPERIDOL LACTATE 10 MG/5 ML ORAL SOLUTION UDC PO SCH ×2 (08:14→16:58)
[2018-11-14] MEDS: HALOPERIDOL LACTATE 5 MG/1 ML VIAL IM SCH ×2 (08:14→16:58)
[2018-11-14] MEDS: METOPROLOL TARTRATE 25 MG TABLET PO SCH ×2 (08:15→20:42)
[2018-11-14] MEDS: CLOPIDOGREL 75 MG TABLET PO SCH (08:15)
[2018-11-14 20:12] VITALS: BP 141/47
[2018-11-14] MEDS: SIMVASTATIN 40 MG TABLET PO SCH (20:43)
[2018-11-15 07:30] VITALS: BP 144/44
[2018-11-15] MEDS: HALOPERIDOL LACTATE 10 MG/5 ML ORAL SOLUTION UDC PO SCH ×2 (08:09→17:01)
[2018-11-15] MEDS: HALOPERIDOL LACTATE 5 MG/1 ML VIAL IM SCH ×2 (08:19→17:00)
[2018-11-15] MEDS: METOPROLOL TARTRATE 25 MG TABLET PO SCH ×2 (08:19→20:18)
[2018-11-15] MEDS: CLOPIDOGREL 75 MG TABLET PO SCH (08:19)
[2018-11-15] MEDS: ASPIRIN 325 MG TABLET PO SCH (08:19)
[2018-11-15 20:17] VITALS: BP 132/48
[2018-11-15] MEDS: SIMVASTATIN 40 MG TABLET PO SCH (20:19)
[2018-11-16 07:30] VITALS: BP 144/53
[2018-11-16] MEDS: ASPIRIN 325 MG TABLET PO SCH (08:06)
[2018-11-16] MEDS: HALOPERIDOL LACTATE 10 MG/5 ML ORAL SOLUTION UDC PO SCH ×2 (08:06→17:13)
[2018-11-16] MEDS: METOPROLOL TARTRATE 25 MG TABLET PO SCH ×2 (08:07→21:00)
[2018-11-16] MEDS: CLOPIDOGREL 75 MG TABLET PO SCH (08:07)
[2018-11-16] MEDS ORDERED: DIVALPROEX 125 MG TABLET.DR PO SCH ×2 (13:00→21:00)
[2018-11-16 19:46] VITALS: BP 120/43
[2018-11-16] MEDS: SIMVASTATIN 40 MG TABLET PO SCH (21:00)
[2018-11-17 07:55] VITALS: BP 131/51
[2018-11-17] MEDS: METOPROLOL TARTRATE 25 MG TABLET PO SCH ×2 (09:00→20:46)
[2018-11-17] MEDS: CLOPIDOGREL 75 MG TABLET PO SCH (09:00)
[2018-11-17] MEDS: HALOPERIDOL LACTATE 10 MG/5 ML ORAL SOLUTION UDC PO SCH (09:00)
[2018-11-17] MEDS: ASPIRIN 325 MG TABLET PO SCH (09:00)
[2018-11-17] MEDS: HALOPERIDOL LACTATE 5 MG/1 ML VIAL IM PRN ×2 (10:22→20:50)
[2018-11-17 15:45] VITALS: BP 129/43
[2018-11-17 19:53] VITALS: BP 140/50
[2018-11-17] MEDS: SIMVASTATIN 40 MG TABLET PO SCH (20:46)
[2018-11-17] MEDS ORDERED: HALOPERIDOL 5 MG TABLET PO SCH (21:00)
[2018-11-18 07:30] VITALS: BP 130/49
[2018-11-18] MEDS: ASPIRIN 325 MG TABLET PO SCH (09:00)
[2018-11-18] MEDS: CLOPIDOGREL 75 MG TABLET PO SCH (09:00)
[2018-11-18] MEDS: METOPROLOL TARTRATE 25 MG TABLET PO SCH ×2 (09:00→21:00)
[2018-11-18] MEDS ORDERED: HALOPERIDOL LACTATE 10 MG/5 ML ORAL SOLUTION UDC PO SCH (09:00)
[2018-11-18] MEDS: HALOPERIDOL LACTATE 5 MG/1 ML VIAL IM PRN ×2 (09:34→09:46)
[2018-11-18] MEDS ORDERED: HALOPERIDOL LACTATE 5 MG/1 ML VIAL IM PRN (14:30)
[2018-11-18 16:00] VITALS: BP 131/53
[2018-11-18] MEDS: HALOPERIDOL LACTATE 10 MG/5 ML ORAL SOLUTION UDC PO SCH (17:00)
[2018-11-18 20:22] VITALS: BP 130/52
[2018-11-18] MEDS: SIMVASTATIN 40 MG TABLET PO SCH (21:00)
[2018-11-19 07:30] VITALS: BP 146/41
[2018-11-19] MEDS: HALOPERIDOL LACTATE 10 MG/5 ML ORAL SOLUTION UDC PO SCH (08:58)
[2018-11-19] MEDS: METOPROLOL TARTRATE 25 MG TABLET PO SCH (09:00)
[2018-11-19] MEDS: CLOPIDOGREL 75 MG TABLET PO SCH (09:00)
[2018-11-19] MEDS: ASPIRIN 325 MG TABLET PO SCH (09:00)
== END 2018-11-19 14:00 | disposition home or self-care (01) | DRG 885 ==
LOC: GPS 20:32
PROVIDERS: ADMIT Psychiatry & Neurology Psychosomatic Medicine; ATTEND Internal Medicine
DX: F25.0 Schizoaffective disorder, bipolar type (principal); I89.0 Lymphedema, not elsewhere classified; Z86.74 Personal history of sudden cardiac arrest; M54.5 Low back pain; Z86.73 Personal history of transient ischemic attack (TIA), and cerebral infarction without residual deficits; Z79.82 Long term (current) use of aspirin; Z79.899 Other long term (current) drug therapy; Z79.02 Long term (current) use of antithrombotics/antiplatelets; E11.42 Type 2 diabetes mellitus with diabetic polyneuropathy; B35.1 Tinea unguium; Z82.49 Family history of ischemic heart disease and other diseases of the circulatory system; I10 Essential (primary) hypertension
CPT/HCPCS: J1630; J2358

== ENCOUNTER 2019-04-08 12:39 | Inpatient (IN) | payer MEDICARE, OTHER ==
[~2019-04-08] VITALS: Ht 160 cm; Wt 54.4 kg
[~2019-04-08 12:39] MED LIST changes: +ASPI-612 PO; -ASPI81TA31 PO; -ATOR40TA GT; +CLOP75TA15 PO; -ENOX30DI SUBCUT; -HYDR-3326 PO; -METO25TA6 GT; +METO25TA6 PO; +NITR0.4T SL; +OXYC-128 PO; -PANT40SU2 GT; -RXVAN XX; +SIMV-49 PO; +TRAM50TA2 PO
--- NOTE | 2019-04-08 12:41 | NUR ---
Patient ambulated with stable gait. Speech clear, speaks in complete sentences. A/Ox4. No acute neuro deficits. Patient disheveled in appearance. Patient came for c/o partial contracture of right hand and right foot. Respiratory even and unlabored, no cough no sob. Redness and swelling noted in RLE. Denies any n/v/d.
--- NOTE | 2019-04-08 13:20 | NUR ---
JAKE KEENE, CRISIS OUTER DIAMETER GRINDER TOOL, CALLED FOR PSYCH EVAL PER ER MD REQUEST. LEFT MESSAGE. ATTEMPT 1.
[2019-04-08] MEDS ORDERED: HYDROCODONE/APAP 5-325MG TABLET PO PRN (13:45)
[2019-04-08] MEDS ORDERED: ONDANSETRON 4 MG/2 ML VIAL IV PRN (13:45)
[2019-04-08] MEDS ORDERED: Z GUARD REMEDY PASTE 57 GM TUBE TOP PRN (13:45)
[2019-04-08] MEDS ORDERED: ACETAMINOPHEN 325 MG TABLET PO PRN (13:45)
[2019-04-08] MEDS ORDERED: MAGNESIUM HYDROXIDE 30 ML LIQUID UDC PO PRN (13:45)
[2019-04-08] MEDS: ASPIRIN 81 MG TAB.CHEW PO SCH (13:45)
[2019-04-08] MEDS ORDERED: HALOPERIDOL 0.5 MG TABLET PO PRN (13:45)
[2019-04-08] MEDS ORDERED: IV NS 1000 ML 1,000 ML IV PRN (13:45)
--- NOTE | 2019-04-08 13:53 | NUR ---
US techFabi at bedside for scan
--- NOTE | 2019-04-08 13:53 | NUR ---
Colby Rick on the line with ERMD
[2019-04-08 14:06] LABS: BASOPHILS # (AUTO) 0.1 K/uL (0.0-8.0); BASOPHILS % (AUTO) 1.3 % (0.0-2.0); EOSINOPHILS # (AUTO) 0.2 K/uL (0.0-0.7); EOSINOPHILS % (AUTO) 3.2 % (0.0-7.0); HEMATOCRIT 36.7 % (31.2-41.9); HEMOGLOBIN 12.1 g/dL (10.9-14.3); LYMPHOCYTES % (AUTO) 26.4 % (20.5-51.5); MEAN CORPUSCULAR HEMOGLOBIN 28.7 uug (24.7-32.8); MEAN CORPUSCULAR HGB CONC 33 g/dL (32.3-35.6); MEAN CORPUSCULAR VOLUME 87.4 fL (75.5-95.3); MONOCYTES # (AUTO) 0.5 K/uL (2.0-10.0); MONOCYTES % (AUTO) 6.5 % (0.0-11.0); NEUTROPHILS # (AUTO) 4.8 K/uL (1.8-8.9); NEUTROPHILS % (AUTO) 62.6 % (38.5-71.5); PLATELET COUNT (AUTO) 296 K/uL (179-408); WHITE BLOOD COUNT (AUTO) 7.7 K/uL (3.8-11.8)
[2019-04-08 14:13] LABS: CARBON DIOXIDE 28 mmol/L (21-32); CHLORIDE 109 mmol/L (98-107); CREATININE 1.1 mg/dL (0.6-1.3); GLUCOSE 102 mg/dL (74-106); POTASSIUM 3.4 mmol/L (3.5-5.1); UREA NITROGEN, BLOOD 34 mg/dL (7-18)
--- NOTE | 2019-04-08 14:19 | NUR ---
pt says that she does not take any medicine on a regular basis. pt says that, " I am not a medicine person".
[2019-04-08 14:30] LABS: ALANINE AMINOTRANSFERASE 12 U/L (14-59); ALKALINE PHOSPHATASE 128 U/L (50-136); ASPARTATE AMINOTRANSFERASE 14 U/L (15-37); BILIRUBIN,DIRECT < 0.1 mg/dL (0.0-0.2); BILIRUBIN,TOTAL 0.2 mg/dL (0.2-1.0); TOTAL PROTEIN, SERUM 7.4 g/dL (6.4-8.2)
--- NOTE | 2019-04-08 15:10 | NUR ---
Report given to LOLIS Cabrera
--- NOTE | 2019-04-08 15:20 | NUR ---
Patient transported to OR in stable condition.
--- NOTE | 2019-04-08 15:30 | NUR ---
RECEIVED PATIENT FROM ER. PATIENT TRANSFERRED TO BED WITHOUT COMPLICATION. NO ACUTE DISTRESS NOTED. BED IN LOWEST POSITION, SIDE RAILS UP X2, CALL LIGHT WITHIN REACH. WILL CONTINUE TO MONITOR.
[2019-04-08 16:04] VITALS: BP 168/58
--- NOTE | 2019-04-08 16:33 | NUR ---
PHARMACY CLINICAL NOTES (VANCOMYCIN DOSING) S: 73 YO female with DX of cellulitis ; MD ordered Vancomycin O: BUN/SCR 34/1.1; WBC 7.7; TEMP 98.2; DOSING WT 120 LBS A/P: will dose Vancomycin as 750 mg q21h; estimated peak of 36 and trough of 17. Plan to order trough prior to 4th dose of Vancomycin. Will continue to monitor the renal fxn and adjust the dose if necessary.
[2019-04-08] MEDS ORDERED: HALOPERIDOL 5 MG TABLET PO PRN (16:45)
[2019-04-08] MEDS ORDERED: VANCOMYCIN IV 750 MG in IV DEXTROSE 5% 250 ML IV SCH (17:00)
[2019-04-08] MEDS: METOPROLOL TARTRATE 50 MG TABLET PO SCH (17:00)
--- NOTE | 2019-04-08 18:00 | NUR ---
PATIENT REACTED TO VANCOMYACIN. PATIENT REPORTED ABDOMINAL PAIN AND ITCHING ALL OVER HER BODY. PATIENT DOES HAVE SMALL HIVES ON HER BACK. VANCO WAS STOPPED AND JOSE KING WAS NOTIFIED. PVC MONITOR ORDERED BENADRYL AD PATIENT REFUSED THE BENADRYL AND PAIN MEDICATIONS FOR THE ABDOMINAL PAIN. JOSE KING WILL NOTIFY INFECTIOUS DISEASE ABOUT ANTIBIOTIC ALLERGY.
[2019-04-08 20:00] VITALS: BP 154/64
[2019-04-08] MEDS: DOXYCYCLINE HYCLATE IV 100 MG in IV DEXTROSE 5% 100 ML IV SCH (20:15)
[2019-04-08] MEDS: ATORVASTATIN 20 MG TABLET PO SCH (20:15)
[2019-04-08] MEDS ORDERED: DOXYCYCLINE HYCLATE IV 100 MG in IV DEXTROSE 5% 100 ML IV SCH (21:00)
[2019-04-09 04:27] VITALS: BP 113/59
--- NOTE | 2019-04-09 05:05 | NUR ---
patient received lying in bed, watching tv. no signs of acute distress and v/s stable throughout shift. safety and comfort measures provided. bed in lowest position, side rails up x2 and bed alarm on. doxycycline administered without any reactions. all needs met. will continue plan of care and endorse accordingly to morning nurse. aspirin refused on Miew for 1345 as patient it was supposed to be administered in ER and patient was already on the floor for a few hours during my shift.
--- NOTE | 2019-04-09 06:33 | NUR ---
patient reported that she wanted to leave AMA. patient is a/o x2 and confused. contacted Adebayo Hart NP, new orders to contact crisis team and have them evaluate her first to assess if patient is able to make sound judgement. if patient is assessed to be able to make sound judgement she is allowed to leave AMA. contacted crisis produce service team member Prasad multiple times and no answer with no voicemail box set up. will endorse to morning shift to follow up with Lilo, a different crisis produce service team member after 8pm.
--- NOTE | 2019-04-09 06:43 | NUR ---
Art from crisis team contacted. he is on his way to evaluate patient.
--- NOTE | 2019-04-09 07:02 | NUR ---
patient pulled out her IV line.
--- NOTE | 2019-04-09 07:03 | NUR ---
crisis team evaluated patient and patient informed Art that she would just receive her antibiotics.
--- NOTE | 2019-04-09 07:30 | NUR ---
Patient received in room with no signs of distress; rn relayed that patient took out peripheral iv and refused all PO meds.Patient will continue to be monitored.
[2019-04-09] MEDS: DOXYCYCLINE HYCLATE IV 100 MG in IV DEXTROSE 5% 100 ML IV SCH ×3 (08:00→19:54)
--- NOTE | 2019-04-09 08:45 | NUR ---
Patient refused all PO medications ; along with replacing perpherial iv ; patient educated on the importance of medication compliance ;patient still refused all medications.
[2019-04-09] MEDS: METOPROLOL TARTRATE 50 MG TABLET PO SCH ×2 (09:00→17:00)
[2019-04-09] MEDS: CLOPIDOGREL 75 MG TABLET PO SCH (09:00)
[2019-04-09] MEDS: METOPROLOL TARTRATE 25 MG TABLET PO SCH ×2 (09:00→17:00)
[2019-04-09] MEDS: ASPIRIN 81 MG TAB.CHEW PO SCH (09:00)
[2019-04-09 11:40] VITALS: BP 110/44
[2019-04-09] MEDS: HALOPERIDOL 5 MG TABLET PO SCH ×2 (13:00→17:00)
[2019-04-09] MEDS ORDERED: HALOPERIDOL 2 MG TABLET PO SCH (13:00)
[2019-04-09 16:00] VITALS: BP 150/61
--- NOTE | 2019-04-09 18:44 | NUR ---
Patient medication noncompliant ; patient only wants iv antibiotics; patient educated by attending and infectious disease on medication compliance ; patient still refused all po meds along with iv fluids. Patient in stable condition with stable vital signs; Report given to oncoming nurse.
[2019-04-09 19:53] VITALS: BP 140/68
[2019-04-09] MEDS: ATORVASTATIN 20 MG TABLET PO SCH (20:43)
--- NOTE | 2019-04-10 05:26 | NUR ---
patient received from ER with no family at bedside. ID band on, belongings list and admissions process complete. 1:1 sitter at bedside for safety. s/s of anxiety and agitation Seroquel no signs of acute distress and v/s stable throughout shift. safety and comfort measures provided. bed in lowest position, side rails up x2, and bed alarm on. all needs met. Ambien and Seroquel administered for s/s of insomnia and agitation. will continue plan of care and endorse accordingly to morning nurse. Addendum: 04/10/19 at 0527 by PAT CARLOS RN CORRECTION: WRONG PATIENT NOTES
--- NOTE | 2019-04-10 05:28 | NUR ---
CORRECTION NOTES: patient received at beginning of shift lying in bed. at beginning of shift started to come to the nursing station screaming and yelling at me to give her antibiotics. at the time of preparing for antibiotics patient was agitated and showed s/s of anxiety and paranoia saying that I was not giving her the antibiotics when it was administering. administered antibiotics . refusing IVF, any oral Meds and medical treatment except for her antibiotics. no signs of acute distress and v/s stable throughout shift. safety and comfort measures provided. bed in lowest position, side rails up x2, and bed alarm on. breathing treatment provided. all need met. will continue plan of care and endorse accordingly to morning nurse.
[2019-04-10 06:46] VITALS: BP 147/58
--- NOTE | 2019-04-10 07:30 | NUR ---
Patient in bed with no signs of distress; patient will continue to be monitored.
--- NOTE | 2019-04-10 07:30 | NUR ---
Patient left against medi Addendum: 04/10/19 at 1335 by ILIANA SAUNDERS RN GLENN PEDRO
[2019-04-10] MEDS: ASPIRIN 81 MG TAB.CHEW PO SCH (09:00)
[2019-04-10] MEDS: CLOPIDOGREL 75 MG TABLET PO SCH (09:00)
[2019-04-10] MEDS: METOPROLOL TARTRATE 50 MG TABLET PO SCH (09:00)
[2019-04-10] MEDS: HALOPERIDOL 5 MG TABLET PO SCH (09:00)
[2019-04-10] MEDS: METOPROLOL TARTRATE 25 MG TABLET PO SCH (09:00)
[2019-04-10] MEDS: DOXYCYCLINE HYCLATE IV 100 MG in IV DEXTROSE 5% 100 ML IV SCH (09:14)
--- NOTE | 2019-04-10 11:35 | NUR ---
Patient left against medical advice; patient stated she wanted to leave ; Psychiatrist Sam notified along with attending MECHANIC AND WELDER ; Psychatrist stated that patient had been evaluated by crisis team and is not at meeting criteria for holdable status. Patient given education on diagnosis and medication compliance; Patient homeless ; still stated she wanted to leave AMA. Patent signed AMA paper work along along with belongings and homeless resource checklist.
== END 2019-04-10 11:35 | disposition left against medical advice (07) | DRG 602 ==
LOC: ER 12:39 → MEDSURG3 15:25
PROVIDERS: ADMIT Nurse Practitioner Acute Care; ATTEND Nurse Practitioner Acute Care
DX: L03.115 Cellulitis of right lower limb (principal); N17.0 Acute kidney failure with tubular necrosis; E87.0 Hyperosmolality and hypernatremia; L03.116 Cellulitis of left lower limb; F25.0 Schizoaffective disorder, bipolar type; H54.8 Legal blindness, as defined in USA; Z59.0 Homelessness; L27.1 Localized skin eruption due to drugs and medicaments taken internally; T36.8X5A Adverse effect of other systemic antibiotics, initial encounter; Y92.230 Patient room in hospital as the place of occurrence of the external cause; Z86.73 Personal history of transient ischemic attack (TIA), and cerebral infarction without residual deficits; Z86.74 Personal history of sudden cardiac arrest; Z91.19 Patient's noncompliance with other medical treatment and regimen; I12.9 Hypertensive chronic kidney disease with stage 1 through stage 4 chronic kidney disease, or unspecified chronic kidney disease; N18.9 Chronic kidney disease, unspecified; I87.8 Other specified disorders of veins; I70.203 Unspecified atherosclerosis of native arteries of extremities, bilateral legs; Z79.02 Long term (current) use of antithrombotics/antiplatelets; Z79.82 Long term (current) use of aspirin; Z79.899 Other long term (current) drug therapy; E87.6 Hypokalemia; I89.0 Lymphedema, not elsewhere classified; M54.5 Low back pain
CPT/HCPCS: 36415; 70030-TC; 83605; 85025; 85730; 87040; 93005; A4663; G0378; J3370; J3490; J7030; J7060

== ENCOUNTER 2019-05-18 17:42 | Emergency (ER) | payer MEDICARE, OTHER ==
[~2019-05-18] VITALS: Ht 162.6 cm; Wt 56.2 kg
[2019-05-18] MEDS ORDERED: ONDANSETRON ODT 4 MG TAB.RAPDIS ONE (18:44)
[2019-05-18] MEDS ORDERED: ONDANSETRON ODT 4 MG TAB.RAPDIS SL ONE (18:45)
--- NOTE | 2019-05-18 19:06 | NUR ---
SHIFT REPORT GIVEN TO LOLIS WAN.
--- NOTE | 2019-05-18 19:07 | NUR ---
Assumed care of patient. No acute distress noted. VSS.
[2019-05-18 19:20] LABS: BASOPHILS % (AUTO) 0.3 % (0.0-2.0); EOSINOPHILS # (AUTO) 0.1 K/uL (0.0-0.7); EOSINOPHILS % (AUTO) 0.7 % (0.0-7.0); HEMATOCRIT 39.6 % (31.2-41.9); HEMOGLOBIN 13.1 g/dL (10.9-14.3); LYMPHOCYTES # (AUTO) 0.5 K/uL (20.0-40.0); LYMPHOCYTES % (AUTO) 3.3 % (20.5-51.5); MEAN CORPUSCULAR HEMOGLOBIN 28.5 uug (24.7-32.8); MEAN CORPUSCULAR HGB CONC 33 g/dL (32.3-35.6); MEAN CORPUSCULAR VOLUME 86.2 fL (75.5-95.3); MONOCYTES # (AUTO) 0.4 K/uL (2.0-10.0); MONOCYTES % (AUTO) 3.2 % (0.0-11.0); NEUTROPHILS # (AUTO) 13.1 K/uL (1.8-8.9); NEUTROPHILS % (AUTO) 92.5 % (38.5-71.5); PLATELET COUNT (AUTO) 315 K/uL (179-408); RED BLOOD CELL COUNT(AUTO) 4.59 MIL/uL (3.63-4.92); WHITE BLOOD COUNT (AUTO) 14.1 K/uL (3.8-11.8)
[2019-05-18 19:23] LABS: CREATININE 1.2 mg/dL (0.6-1.3); POTASSIUM 5.1 mmol/L (3.5-5.1)
[2019-05-18 19:29] LABS: BILIRUBIN,DIRECT 0.1 mg/dL (0.0-0.2); BILIRUBIN,TOTAL 0.3 mg/dL (0.2-1.0); TOTAL PROTEIN, SERUM 7.5 g/dL (6.4-8.2)
--- NOTE | 2019-05-18 20:09 | NUR ---
Patient discharged to home in stable conditon. Written and verbal after care instructions given. Patient verbalizes understanding of instructions. Ambulated from ER with stable gait. All belongings with patient. Patient refused all homeless resources.
[2019-05-18 20:10] VITALS: BP 134/75
== END 2019-05-18 20:11 | disposition home or self-care (01) ==
LOC: ER 17:42
DX: R11.10 Vomiting, unspecified (principal); R19.7 Diarrhea, unspecified; Z88.2 Allergy status to sulfonamides; Z88.8 Allergy status to other drugs, medicaments and biological substances; Z79.82 Long term (current) use of aspirin; Z79.01 Long term (current) use of anticoagulants; Z79.899 Other long term (current) drug therapy
CPT/HCPCS: 36415; 83690; 85025; 93005; A4663; Q0162

== ENCOUNTER 2019-09-19 21:28 | Inpatient (IN) | payer MEDICARE, OTHER ==
[~2019-09-19] VITALS: Ht 162.6 cm; Wt 53.5 kg
--- NOTE | 2019-09-19 21:40 | NUR ---
Received patient from [facility] on 5149 GD will be admitted to MHU. To room 1A. Patient AA very talkative able to make needs known.
--- NOTE | 2019-09-19 22:00 | NUR ---
Evaluated by Dr. Hernandez. Patient refused CXR. Urinated per bedpan; specimen sent to lab.
[2019-09-19 22:04] LABS: *BILIRUBIN,URIN NEGATIVE (NEGATIVE); *BLOOD, URINE 2+ (NEGATIVE); *CLARITY,URINE SLIGHTLY CLOUDY (CLEAR); *COLOR,URINE YELLOW (YELLOW); *KETONES,URINE NEGATIVE (NEGATIVE); *UROBILINOGEN,URINE 0.2 E.U./dl (NORMAL); LEUKOCYTE ESTERASE ,URINE 1+ (NEGATIVE); NITRITE, URINE NEGATIVE (NEGATIVE); UGLUCOSE NEGATIVE (NEGATIVE)
--- NOTE | 2019-09-19 22:15 | NUR ---
With 1:1 sitter. C/o being cold and hungry. [place], juice and warm blankets provided.
[2019-09-19 22:20] LABS: BACTERIA,URINE MANY /HPF (NONE SEEN); SQUAMOUS EPITHELIAL CELL,UR MODERATE /HPF (NONE SEEN)
--- NOTE | 2019-09-19 22:27 | NUR ---
Patient Had 4x$100.00; 3x$50.00; 28x$20.00; 4x$10.00; 7x$5.00;1x$2.00 and 38x$1.00 with a total of $1,225.00. Also had Social Secruity check with amount of 5x $403.04 and 1x$647.00. Valuable placed in Valuable Envelope #[id number].
--- NOTE | 2019-09-19 22:30 | NUR ---
Requesting for pull ups. Gets easily agitated and emanding; advised and reassured appropriately. Patient calm and cooperative afterwards. Diapers provided. Addendum: 09/19/19 at 2348 by DANNY easily agitated and demanding
--- NOTE | 2019-09-19 22:40 | NUR ---
Gave sealed valuable envelope that contain patient's money and check to literacy education professor Megha to be placed in hospital safe.
--- NOTE | 2019-09-19 23:30 | NUR ---
Report given to Bushra DANIELLE. MRSA swab done.
[2019-09-20] MEDS ORDERED: ACETAMINOPHEN 325 MG TABLET PO PRN (00:15)
[2019-09-20] MEDS ORDERED: TEMAZEPAM 7.5 MG CAPSULE PO PRN (00:15)
[2019-09-20] MEDS ORDERED: MAGNESIUM HYDROXIDE 30 ML LIQUID UDC PO PRN (00:15)
[2019-09-20] MEDS ORDERED: MAG HYDROX/AL HYDROX/SIMETH 30 ML LIQUID UDC PO PRN (00:15)
[2019-09-20] MEDS ORDERED: LORAZEPAM 0.5 MG TABLET PO PRN (00:15)
--- NOTE | 2019-09-20 00:25 | NUR ---
Pt. admitted to MHU room 139B, under care of Peter Gage and Gabby. Belongs List completed.
--- NOTE | 2019-09-20 01:00 | NUR ---
Admission Note: 74 y.o female admitted to MHU via gurney accompanied by ER staff. Pt is on a 5150 for GD, and is under the care of Dr Everett and Dr Pierre, with a dx of Psychosis. According to the 5150, Pt was sent to [facility] from [facility]. Pt is blind and was crossing [facility], and found by PD. Pt stated she was nowhere to sleep and believes she has been followed by unknown suspects, so she ripped up her own padron. Upon face to face assessment, Pt is unkempt and disheveled in a hospital gown. Pt is awake and A+Ox3, with rapid, pressured speech. Pt states she is here because people were following me because they could see the padron in my purse, they wanted to becky me. Pt was not able to elaborate on who these people were, or where they were accosting her. Pt stated the only thing wrong with her, is that she has no place to sleep. Pt is paranoid and has poor insight into mental health condition and reason for admission. Pt is anxious, irritable and fixated on when she will be discharged, was angry when her Hold was explained to her. Pt is unable to verbalize a plan for self care and safety. Pt is hyperverbal with pressured speech, tangential in thought process. Denies SI/HI and AH/VH, CFS. Pt is known to have had several previous psych admissions per her medical record, but she denies ever having been on a 5150. Pt requires assist with ADLs as she is blind. 1:1 sitter ordered for safety. Pt able to ambulate with FWW and assist. Pts diaper was changed upon placing her in bed, and Pt was put into a clean hospital gown. Z guard ordered for skin maintenance, and PT ordered, podiatry ordered for long, thick toenails. Upon admission to the unit VS stable, with no c/o or evidence of pain. Denies any past or pending legal issues, or owning any firearms, and denies h/o smoking, drug, or alcohol abuse. Skin assessment completed with licensed female staff, skin c/d/i, with small rash noted to buttocks. Pt refused photo. Pt has a medical h/o HLD, HTN, UTI, SAD, Bipolar disorder, cataracts, and blindness. Allergies noted to sulfa, methylprednisone, and trimethoprim. Dr Everett and Dr Pierre notified of admission, orders received, meds reconciled. Pt did not give permission to call anyone to notify, and no contacts were listed on the face sheet. Belongings inventoried and placed in Pt locker. Pt was able to participate in admission process, and unable to sign paperwork due to blindness. Pt came in with a large amount of padron and checks, ER staff placed money in a sealed envelope and transferred it to the Nursing Histopathology Technician. Pt educated regarding unit rules and expectations. Patient rights explained, Advisement and patient rights handbook given, Pt will need reinforcement. Pt oriented to the unit, the phones, her room, and the bathroom. Q 15 minute safety checks initiated.
[2019-09-20] MEDS ORDERED: Z GUARD REMEDY PASTE 57 GM TUBE TOP PRN (04:30)
[2019-09-20 05:38] VITALS: BP 149/67
[2019-09-20 07:30] VITALS: BP 161/58
[2019-09-20] MEDS: CEphaleXIN 500 MG CAPSULE PO SCH ×4 (11:45→22:00)
[2019-09-20] MEDS: DIVALPROEX SPRINKLE 125 MG CAP.SPRINK PO SCH ×3 (13:00→17:00)
--- NOTE | 2019-09-20 15:44 | NUR ---
JOHNNY Initial Discharge Plan: Patient is currently homeless. Patient refuses to discuss discharge planning to possible long-term placement. JOHNNY will continue to work with patient and MD to ensure a safe and proper discharge plan.
--- NOTE | 2019-09-20 15:50 | NUR ---
JOHNNY APS Report: JOHNNY conducted a telephone Adult Protective Services Report and will be completing the Suspected Dependent Adult/Elder Abuse SOC 341 Form Hand Written Document and Mail within 2 business days. Report Intake ID #[id number]
[2019-09-20 16:00] VITALS: BP 130/65
--- NOTE | 2019-09-20 18:24 | NUR ---
patient is in angry mood, refused her meds. tolerated meals well' kept comfortable
[2019-09-20 20:07] VITALS: BP 124/52
[2019-09-20] MEDS ORDERED: risperiDONE 0.5 MG TABLET PO SCH (21:00)
--- NOTE | 2019-09-20 21:36 | NUR ---
GPS/RN: PT WAS RECEIVED ASLEEP, RESPOND TO NAME AND LIGHT TOUCH. PT WAS ANGRY WHEN AWAKE AND SAID LEAVE ME ALONE, I WANT TO SEE THE SOCIAL SECURITY AND THE DOCTOR! PT WAS NOTED INCOHERENT AND NOT UNDERSTANDING WHAT NURSE WAS SAYING TO HER. PT UNCOOPERATIVE WITH ROUTINE MEDICATIONS AND ATB THERAPY, SAID I AM NOT TAKING ANYTHING UNTIL I SEE THEM!. PT IS NOT AGGRESSIVE AT THIS TIME. WILL CONTINUE TO MONITOR WITH Q/15MINS HEAD COUNT ONGOING.
[2019-09-21] MEDS: CEphaleXIN 500 MG CAPSULE PO SCH ×3 (06:00→22:00)
[2019-09-21 07:30] VITALS: BP 152/47
[2019-09-21] MEDS: risperiDONE 0.5 MG TABLET PO SCH ×2 (09:00→17:00)
[2019-09-21] MEDS: DIVALPROEX SPRINKLE 125 MG CAP.SPRINK PO SCH (09:00)
--- NOTE | 2019-09-21 15:14 | NUR ---
JOHNNY APS Follow Up: JOHNNY received a call from APS catalytic case operator Keli ([phone]) following up regarding the APS report JOHNNY APS Report Intake ID #[id number]. Keli stated "I am suggesting a conservatorship should be filed for the patient". Keli stated that there is nothing more they can do for this patient at this time, and that she will follow up in one week. Keli also stated that they will not keep an open case for a long time.
[2019-09-21 16:00] VITALS: BP 121/53
--- NOTE | 2019-09-21 16:05 | NUR ---
called and spoke with Dr. sinclair regarding MRSA result with orders made and carried,
[2019-09-21] MEDS ORDERED: DIVALPROEX 250 MG TABLET.DR PO SCH (17:00)
[2019-09-21 19:41] VITALS: BP 142/50
[2019-09-21] MEDS: MUPIROCIN 2% OINT 22 GM TUBE NS SCH (20:30)
--- NOTE | 2019-09-21 20:55 | NUR ---
PATIENT RECEIVED IN BED AWAKE. PATIENT IS EASILY IRRITABLE, AGITATED, AND LABILE. PATIENT REFUSED MEDICATION. SAFE ENVIRONMENT PROVIDED, FREQUENT ROUNDING, CLUTTER FREE ENVIRONMENT. BED IN LOWEST POSITION, BED LOCKED, AND BED ALARM ON WHILE IN BED.
[2019-09-22] MEDS: CEphaleXIN 500 MG CAPSULE PO SCH (06:00)
[2019-09-22 07:30] VITALS: BP 165/64
[2019-09-22] MEDS: MUPIROCIN 2% OINT 22 GM TUBE NS SCH (09:00)
[2019-09-22] MEDS: DIVALPROEX SPRINKLE 125 MG CAP.SPRINK PO SCH (09:00)
[2019-09-22] MEDS: risperiDONE 0.5 MG TABLET PO SCH (09:00)
--- NOTE | 2019-09-22 11:20 | NUR ---
Social Work Firearms Report (DOJ): Automatic Tire Tester completed and submitted a [employer] firearms report for 5150 grave disability certification. A copy of report has been placed in patient chart.
--- NOTE | 2019-09-22 11:32 | NUR ---
JOHNNY Discharge Note: Patient is choosing to be discharged to [facility] [address] [place] [address] ([phone]) and will be discharged today. Patient will be provided with taxi transportation today at 12:30pm and given a taxi voucher. Patient is aware and agreeable with discharge plans. Patient denies suicidal or homicidal ideation. Patient presents as alert and oriented x4 with irritable mood and congruent affect. She is at her baseline. Patient is referred to [facility] [address] [place] [address] ([phone]) for outpatient psychiatric services and commodity specialist consultation. transplant worker spoke with Jennie who will follow up with the patient for immediate resources and referred her to [facility] [address] [place] [address] ([phone]) for medication management as a walk-in patient, available every day at starting 4pm and meet with a psychiatrist on a as needed basis. Patient is also referred to [facility] [address] [place] [address] ([phone]) for primary care follow up. JOHNNY provided patient with the [phone] [facility] Winter Detention Program list. JOHNNY provided patient with a copy of the [facility] homeless directory which provides information on locations for hot meals, sack lunches, food pantries, and showers. JOHNNY provided an additional list of mental health clinics: [facility] [address] [place] [address] ([phone]); [facility] [place] [address] ([phone]); a list of medical clinics ; [facility] [address] [address] [facility] [address], [place]. [place], ; [facility] [address] [facility], [address], [place].
--- NOTE | 2019-09-22 13:00 | NUR ---
JOHNNY APS Mail: JOHNNY completed and mailed the Suspected Dependent Adult/Elder Abuse SOC 341 Form Hand Written Document to [address] [facility] [facility], [place] [address]. Intake ID #[id number]
--- NOTE | 2019-09-22 13:10 | NUR ---
Gps/Vacuum Applicator Operator- Patient refused to sign belonging list, as well as discharged instructions, claimed she does not trust anyone here except the head of Social Service , who is not available at his time . [place] Nurse Dye Colorist Formulator was in to assist. staff. .Charged Nurse Mariam tried to count her money in front of her , pt. not agreeing w/ the count , insisting needed to see Wendy TURNER whom she trust . All belongings given back to patient total of $ 1,225.00(padron and including SS.checks) Patient was also informed and educated, she needs to take her oral abx. 2 x a day for 7 days.( Rx in her envelope) pt. refusing to listen, anxious .PDischarged to Home([facility]) via taxi, with all belongings given back as reviewed w/ the presence staffs , Fallon Nurse Dye Colorist Formulator , Charge Nurse Mariam, Jeannie Nevarez, FRANCHESCA Rodriguez and a Crime Prevention Police Officer .Discharged via taxi in no distress, no discomfort., no new complaints.
== END 2019-09-22 13:20 | disposition home or self-care (01) | DRG 885 ==
LOC: ER 21:29 → GPS 09-20 00:03
PROVIDERS: ADMIT Psychiatry & Neurology Psychosomatic Medicine; ATTEND Student in an Organized Health Care Education/Training Program
DX: F25.0 Schizoaffective disorder, bipolar type (principal); F01.50 Vascular dementia, unspecified severity, without behavioral disturbance, psychotic disturbance, mood disturbance, and anxiety; N17.0 Acute kidney failure with tubular necrosis; G93.41 Metabolic encephalopathy; N39.0 Urinary tract infection, site not specified; Z16.12 Extended spectrum beta lactamase (ESBL) resistance; L03.315 Cellulitis of perineum; H54.8 Legal blindness, as defined in USA; R00.1 Bradycardia, unspecified; Z86.74 Personal history of sudden cardiac arrest; Z59.0 Homelessness; Z91.14 Patient's other noncompliance with medication regimen; F17.210 Nicotine dependence, cigarettes, uncomplicated; E86.9 Volume depletion, unspecified; E78.5 Hyperlipidemia, unspecified; L30.4 Erythema intertrigo; Z79.82 Long term (current) use of aspirin; Z86.73 Personal history of transient ischemic attack (TIA), and cerebral infarction without residual deficits; B96.20 Unspecified Escherichia coli [E. coli] as the cause of diseases classified elsewhere; D64.9 Anemia, unspecified; F60.2 Antisocial personality disorder; F39 Unspecified mood [affective] disorder
CPT/HCPCS: 87077; 87086; 93005; A4663

== ENCOUNTER 2019-10-06 13:14 | Emergency (ER) | payer MEDICARE, OTHER ==
[~2019-10-06] VITALS: Ht 160 cm; Wt 56.7 kg
[2019-10-06] MEDS ORDERED: IV NORMAL SALINE 1000 ML BAG IV ONE (13:45)
[2019-10-06] MEDS ORDERED: IV NS 1000 ML 1,000 ML IV ONE (13:45)
--- NOTE | 2019-10-06 13:55 | NUR ---
pt denies taking any med on routine basis. pt states that " there is no need for me to take any medicine at home.
[2019-10-06 14:34] LABS: *BILIRUBIN,URIN NEGATIVE (NEGATIVE); *BLOOD, URINE NEGATIVE (NEGATIVE); *COLOR,URINE YELLOW (YELLOW); *KETONES,URINE NEGATIVE (NEGATIVE); *UROBILINOGEN,URINE 0.2 E.U./dl (NORMAL); LEUKOCYTE ESTERASE ,URINE TRACE (NEGATIVE); NITRITE, URINE NEGATIVE (NEGATIVE); UGLUCOSE NEGATIVE (NEGATIVE)
[2019-10-06 14:43] LABS: *CLARITY,URINE HAZY (CLEAR)
[2019-10-06 14:44] LABS: BACTERIA,URINE MODERATE /HPF (NONE SEEN); RBC,URINE 0-3 /HPF (0-3); SQUAMOUS EPITHELIAL CELL,UR MODERATE /HPF (NONE SEEN); WBC,URINE 20-50 /HPF (0-3)
[2019-10-06 14:49] LABS: BASOPHILS # (AUTO) 0.1 K/uL (0.0-8.0); BASOPHILS % (AUTO) 0.7 % (0.0-2.0); EOSINOPHILS # (AUTO) 0.3 K/uL (0.0-0.7); EOSINOPHILS % (AUTO) 3.4 % (0.0-7.0); HEMOGLOBIN 11.8 g/dL (10.9-14.3); MEAN CORPUSCULAR HEMOGLOBIN 28.6 uug (24.7-32.8); MEAN CORPUSCULAR HGB CONC 34 g/dL (32.3-35.6); MEAN CORPUSCULAR VOLUME 85.2 fL (75.5-95.3); MONOCYTES # (AUTO) 0.5 K/uL (2.0-10.0); MONOCYTES % (AUTO) 5.9 % (0.0-11.0); NEUTROPHILS # (AUTO) 5.9 K/uL (1.8-8.9); PLATELET COUNT (AUTO) 312 K/uL (179-408); RED BLOOD CELL COUNT(AUTO) 4.11 MIL/uL (3.63-4.92); WHITE BLOOD COUNT (AUTO) 8.8 K/uL (3.8-11.8)
[2019-10-06 14:54] LABS: *AMPHETAMINE, URINE NEGATIVE (NEGATIVE); *BARBITURATE, URINE NEGATIVE (NEGATIVE); *CANNABINOID, URINE NEGATIVE (NEGATIVE); *COCCAINE, URINE NEGATIVE (NEGATIVE); *OPIATE, URINE NEGATIVE (NEGATIVE); *PHENCYCLIDINE SCREEN,URINE NEGATIVE (NEGATIVE)
[2019-10-06 14:57] LABS: CARBON DIOXIDE 28 mmol/L (21-32); CHLORIDE 110 mmol/L (98-107); CREATININE 1.4 mg/dL (0.6-1.3); GLUCOSE 91 mg/dL (74-106); POTASSIUM 4.4 mmol/L (3.5-5.1); UREA NITROGEN, BLOOD 28 mg/dL (7-18)
[2019-10-06 15:02] LABS: ETHANOL < 3 MG/DL (0-0)
[2019-10-06 15:04] LABS: ALANINE AMINOTRANSFERASE 18 U/L (14-59); ALKALINE PHOSPHATASE 99 U/L (50-136); ASPARTATE AMINOTRANSFERASE 16 U/L (15-37); BILIRUBIN,DIRECT 0.1 mg/dL (0.0-0.2); BILIRUBIN,TOTAL 0.3 mg/dL (0.2-1.0)
[2019-10-06 15:28] LABS: THYROID STIMULATING HORMONE 1.562 mIU/mL (0.358-3.740)
[2019-10-06] MEDS ORDERED: CEFTRIAXONE /D5W 50ML IVPB **ER PYXIS IV ONE (15:57)
[2019-10-06] MEDS ORDERED: CEFTRIAXONE 1 G in IV DEXTROSE 5% 50 ML IV ONE (16:00)
[2019-10-06 16:41] LABS: CARBON DIOXIDE 26 mmol/L (21-32); CHLORIDE 111 mmol/L (98-107); CREATININE 1.4 mg/dL (0.6-1.3); GLUCOSE 94 mg/dL (74-106); POTASSIUM 4.4 mmol/L (3.5-5.1); UREA NITROGEN, BLOOD 28 mg/dL (7-18)
--- NOTE | 2019-10-06 18:50 | NUR ---
IV removed. Catheter intact and site benign. Pressure and 4x4 gauze applied to site. No bleeding noted. Patient given written and verbal discharge instructions. Patient verbalizes understanding of instructions. Patient is ambulatory with steady gait. Refuses offer of [facility] placement. Patient given list of available shelters in surrounding area. Patient A/Ox4.
[2019-10-06 18:58] VITALS: BP 138/66
== END 2019-10-06 18:58 | disposition home or self-care (01) ==
LOC: ER 13:16
DX: N39.0 Urinary tract infection, site not specified (principal); R53.83 Other fatigue; N28.9 Disorder of kidney and ureter, unspecified; Z59.0 Homelessness; H54.8 Legal blindness, as defined in USA; Z86.74 Personal history of sudden cardiac arrest; Z85.72 Personal history of non-Hodgkin lymphomas; Z88.2 Allergy status to sulfonamides; F25.0 Schizoaffective disorder, bipolar type; E87.0 Hyperosmolality and hypernatremia
CPT/HCPCS: 36415; 80048 ×2; 80076; 80307 ×2; 81001; 82550; 83605; 83880; 84443; 84484; 85025; 85730; 87040; 87077 ×2; 87086; 87186; 93005; 96361; 96365; 99285; J0696; 70030-TC; A4663; G0480; J7030

== ENCOUNTER 2019-11-04 18:42 | Emergency (ER) | payer MEDICARE, MEDICAID ==
[~2019-11-04] VITALS: Ht 160 cm; Wt 59.0 kg
[2019-11-04] MEDS ORDERED: MULT-213 PO (18:56)
[2019-11-04] MEDS ORDERED: MAGN400O6 PO (18:56)
[2019-11-04] MEDS ORDERED: ACET-2154 PO (18:56)
[2019-11-04] MEDS ORDERED: TOBRAMYCIN 0.3% EACHEYE (18:56)
[2019-11-04] MEDS ORDERED: BISA10SU61 RC (18:56)
[2019-11-04] MEDS ORDERED: ACET-2605 PO (18:56)
[2019-11-04] MEDS ORDERED: NA P133E RC (18:56)
[2019-11-04] MEDS ORDERED: UBID100C13 PO (18:56)
--- NOTE | 2019-11-04 19:00 | NUR ---
MD@bedside, medical screening exam in progress
--- NOTE | 2019-11-04 19:10 | NUR ---
Assumed care for patient at this time. Provided patient with meals and drinks as she requested. Sitting in bed, not in any acute distress. AO x 1-2, noted with speaking to self. Labile mood, easily gets upset and laughs alone to self. Repeating her words over and over again. Noted with wandering tendencies, ambulatory with steady gait. Able to be redirected back to bed. Fall and safety precautions maintained.
--- NOTE | 2019-11-04 19:35 | NUR ---
Dr. Marie spoke with patient regarding plan of care after speaking with [facility]'s primary MD. however, pt is argumentative and distrustful of MD. Requesting to see a social service director. Informed her that [facility] RN is on the way, although patient adamantly denies that she has any psych history, that she is crazy or that she is paranoid.
--- NOTE | 2019-11-04 20:00 | NUR ---
Assisted pt with putting on 3 pull-ups at a time, per her request. Pt is now laying down in bed, waiting to speak with SW.
--- NOTE | 2019-11-04 20:06 | NUR ---
Yessi Banks saw patient.
--- NOTE | 2019-11-04 20:21 | NUR ---
and neck skewer cleared patient to DC back to group home. [facility] ambulance contacted for soumyafer to [facility]. Spoke with Carter, ambulance will be here between 10 and 10:30 PM. Notified receiving RN. Complete report given about course in ER. Per her, patient will be going back to room 114.
[2019-11-04 20:37] VITALS: BP 139/68
--- NOTE | 2019-11-04 22:37 | NUR ---
[facility] Unit 40 Ravi R given report to. Written and verbal after care instructions also given to EMT, and verbalizes understanding of instructions. Pt is leaving the facility at this time, in stable condition. to [facility].
== END 2019-11-04 22:39 ==
LOC: ER 18:48
DX: B35.1 Tinea unguium (principal); H57.03 Miosis; H54.8 Legal blindness, as defined in USA; Z86.74 Personal history of sudden cardiac arrest; F25.0 Schizoaffective disorder, bipolar type; Z59.0 Homelessness; F03.90 Unspecified dementia, unspecified severity, without behavioral disturbance, psychotic disturbance, mood disturbance, and anxiety
CPT/HCPCS: A4663

== ENCOUNTER 2023-08-10 14:57 | Inpatient (IN) | payer MEDICARE, OTHER ==
[~2023-08-10] VITALS: Ht 160 cm; Wt 68.5 kg
[~2023-08-10 14:57] MED LIST changes: +ACET-2154 PO; +ACET-2605 PO; -ASPI-612 PO; +BISA10SU61 RC; +CLIN300C12 PO; -CLOP75TA15 PO; +MAGN400O6 PO; -METO25TA6 PO; +MULT-213 PO; +NA P133E RC; -NITR0.4T SL; -OXYC-128 PO; -SIMV-49 PO; +TOBRAMYCIN 0.3% EACHEYE; -TRAM50TA2 PO; +UBID100C13 PO
[2023-08-10] MEDS ORDERED: MAG HYDROX/AL HYDROX/SIMETH 30 ML LIQUID UDC PO PRN (15:45)
[2023-08-10] MEDS ORDERED: CLONAZEPAM 0.5 MG TABLET PO PRN (15:45)
[2023-08-10] MEDS ORDERED: MAGNESIUM HYDROXIDE 30 ML LIQUID UDC PO PRN (15:45)
[2023-08-10] MEDS ORDERED: TEMAZEPAM 7.5 MG CAPSULE PO PRN (15:45)
[2023-08-10] MEDS ORDERED: ACETAMINOPHEN 325 MG TABLET PO PRN (15:45)
[2023-08-10 16:37] VITALS: BP 141/50; TEMP 98.4; O2SAT 97
[2023-08-10] MEDS ORDERED: HYDR-3980 PO (18:16)
[2023-08-10] MEDS ORDERED: MULT-24 PO (18:18)
[2023-08-10] MEDS ORDERED: ZINC113P3 TP (18:20)
[2023-08-10 20:00] VITALS: BP 125/44; TEMP 99; O2SAT 95
[2023-08-10] MEDS ORDERED: HYDROCODONE/APAP 10-325 MG TABLET PO PRN (21:30)
[2023-08-11] MEDS: REMEDY ESSENTIAL ZINC PASTE 113 GM TOP PRN (04:26)
[2023-08-11 07:30] VITALS: BP 142/46; TEMP 98.2; O2SAT 96
[2023-08-11 08:00] VITALS: BP 142/46; TEMP 98.2; O2SAT 96
[2023-08-11] MEDS ORDERED: BISACODYL 10 MG SUPP.RECT RC PRN (08:15)
[2023-08-11] MEDS ORDERED: MAGNESIUM HYDROXIDE 30 ML LIQUID UDC PO PRN (08:15)
[2023-08-11] MEDS ORDERED: HYDROCODONE/APAP 10-325 MG TABLET PO PRN (08:15)
[2023-08-11] MEDS: MULTIVITAMINS,THERAPEUTIC TABLET PO SCH (09:00)
[2023-08-11] MEDS ORDERED: CLINDAMYCIN HCL 300 MG CAPSULE PO SCH (09:00)
[2023-08-11] MEDS ORDERED: MULTIVITAMINS,THERAPEUTIC TABLET PO SCH (09:00)
[2023-08-11] MEDS: CLINDAMYCIN HCL 300 MG CAPSULE PO SCH (10:10)
[2023-08-11] MEDS: ESCITALOPRAM OXALATE 10 MG TABLET PO SCH (13:00)
[2023-08-11 15:17] VITALS: BP 134/56; TEMP 98.2; O2SAT 96
[2023-08-11] MEDS: QUETIAPINE FUMARATE 25 MG TABLET PO SCH (21:00)
[2023-08-11] MEDS: MUPIROCIN 2% OINT 22 GM TUBE TP SCH (21:00)
[2023-08-11 21:29] VITALS: BP 140/59; TEMP 98.2
[2023-08-11 21:45] VITALS: O2SAT 97
[2023-08-12 07:17] VITALS: BP 96/60; TEMP 98; O2SAT 96
[2023-08-12 16:01] VITALS: BP 125/77; TEMP 98; O2SAT 96
[2023-08-12] MEDS: ENSURE ENLIVE (VAN) 240 ML LIQUID PO SCH (17:55)
[2023-08-12 20:00] VITALS: BP 146/73; TEMP 98.4; O2SAT 95
[2023-08-13 09:05] VITALS: BP 168/64; TEMP 97.8; O2SAT 98
[2023-08-13 15:03] VITALS: BP 119/79; TEMP 98; O2SAT 98
[2023-08-13 20:00] VITALS: BP 149/60; TEMP 98.2; O2SAT 98
[2023-08-14 08:00] VITALS: BP 152/50; TEMP 98; O2SAT 98
[2023-08-14 15:13] VITALS: BP 169/73; TEMP 98; O2SAT 96
[2023-08-14] MEDS: diphenhydrAMINE 50 MG/1 ML VIAL IM ONE (16:43)
[2023-08-14] MEDS: HALOPERIDOL LACTATE 5 MG/1 ML VIAL IM ONE (16:46)
[2023-08-14] MEDS: LORAZEPAM 2 MG/1 ML VIAL IM ONE (16:47)
[2023-08-14 20:00] VITALS: BP 147/49; TEMP 98.2; O2SAT 97
[2023-08-15 07:58] VITALS: BP 154/53; TEMP 97.7; O2SAT 97
[2023-08-15 16:16] VITALS: BP 153/52; TEMP 97.8; O2SAT 96
[2023-08-15 20:24] VITALS: BP 140/49; TEMP 98.2; O2SAT 98
[2023-08-16 09:27] VITALS: BP 145/59; TEMP 98.2; O2SAT 97
[2023-08-16 16:09] VITALS: BP 147/52; TEMP 98; O2SAT 97
[2023-08-17 08:27] VITALS: BP 148/55; TEMP 98.1; O2SAT 98
[2023-08-17 16:38] VITALS: BP 140/60; TEMP 98.1; O2SAT 97
[2023-08-17 20:00] VITALS: BP 128/53; TEMP 98.1; O2SAT 96
[2023-08-18 15:53] VITALS: BP 154/64; TEMP 98.2; O2SAT 96
[2023-08-18 20:00] VITALS: BP 147/50; TEMP 98.5; O2SAT 97
[2023-08-19 08:17] VITALS: BP 112/51; TEMP 98; O2SAT 92
[2023-08-19 15:48] VITALS: BP 120/62; TEMP 98; O2SAT 96
[2023-08-19 19:53] VITALS: BP 124/60; TEMP 97.8; O2SAT 95
[2023-08-20 08:05] VITALS: BP 115/43; TEMP 98.2; O2SAT 100
[2023-08-20 15:20] VITALS: BP 126/58; TEMP 98; O2SAT 96
[2023-08-20 20:09] VITALS: BP 127/51; TEMP 98.2; O2SAT 96
[2023-08-21 07:30] VITALS: BP 95/68; TEMP 98; O2SAT 98
[2023-08-21 16:04] VITALS: BP 100/62; TEMP 98.2; O2SAT 98
== END 2023-08-21 18:00 | disposition left against medical advice (07) | DRG 885 ==
LOC: GPS 14:57
PROVIDERS: ADMIT Psychiatry & Neurology Psychiatry; ATTEND Internal Medicine
DX: F25.1 Schizoaffective disorder, depressive type (principal); E44.0 Moderate protein-calorie malnutrition; Z59.02 Unsheltered homelessness; L03.115 Cellulitis of right lower limb; G93.40 Encephalopathy, unspecified; Z87.442 Personal history of urinary calculi; S90.821A Blister (nonthermal), right foot, initial encounter; X58.XXXA Exposure to other specified factors, initial encounter; Y92.89 Other specified places as the place of occurrence of the external cause; M15.9 Polyosteoarthritis, unspecified; I73.9 Peripheral vascular disease, unspecified; I87.2 Venous insufficiency (chronic) (peripheral); E66.9 Obesity, unspecified; Z68.26 Body mass index [BMI] 26.0-26.9, adult; R73.03 Prediabetes; Z91.199 Patient's noncompliance with other medical treatment and regimen due to unspecified reason; Z86.74 Personal history of sudden cardiac arrest; Z59.7 Insufficient social insurance and welfare support; H54.8 Legal blindness, as defined in USA; I10 Essential (primary) hypertension; E78.5 Hyperlipidemia, unspecified; R41.9 Unspecified symptoms and signs involving cognitive functions and awareness
CPT/HCPCS: J1200; J1630; J2060